=== PATIENT | female | born 1960 | race Caucasian/White ===

== ENCOUNTER 2016-12-05 13:04 | Inpatient (IN) ==
[2016-12-05] MEDS ORDERED: DEXTROSE 50% 25 GM/50 ML VIAL IV PRN (13:15)
--- NOTE | 2016-12-05 13:15 | Cardiothoracic History & Phys ---
History of Present Illness Chief complaint: Chest pain History of present illness: Ms. Joshi is a 56 year old female who is a patient of Dr. Messi De La Torre who is taking care of her for peripheral vascular disease. We will seen him in his office earlier this week she complained of chest pain and Dr. Lopez was suspicious of ischemic heart pain and referred her for cardiac evaluation. This consisted of cardiac catheterization demonstrating critical coronary artery disease and the patient has been referred for bypass surgery. Past medical history: Patient has a history of hypertension as well as diabetes mellitus hyperlipidemia and long-term tobacco use. Family history is positive for history of arrhythmias in the patient's mother. Patient surgical history includes amputation of 4 toes on the left foot. This was a result of diabetes and peripheral vascular disease. She has also had a previous section and cholecystectomy and right shoulder surgery. She has had median nerve decompression in the right wrist as well. Review of systems is noncontributory to the present illness social history shows that the patient is a cigarette smoker and has been for many years. She does not drink alcohol. Physical examination: Patient is a well-developed well-nourished white female in no acute distress. Examination of head eyes ears nose and throat show the pupils are equal react to light extraocular motions are intact and the oropharynx is benign. Examination of the neck shows no cysts or masses and there is no thyromegaly. Examination of the chest is clear to percussion and auscultation and examination the heart shows a regular sinus rhythm with no murmurs. Examination of the abdomen is soft and nontender and there is no tenderness and there is no organomegaly. Examination extremities shows no cyanosis or edema but there are absent pulses in both feet. Neurological examination is grossly within normal limits. Assessment: Coronary artery disease. Plan: Coronary bypass surgery Friday, December 09, 2016.
--- NOTE | 2016-12-05 17:02 | Hospitalist Consult Note ---
Assessment and Plan (1) CAD (coronary artery disease) Status: Acute Assessment and plan: cabg on Friday, ASA Current Visit: Yes (2) PAD (peripheral artery disease) Status: Acute Assessment and plan: fem pop bypass in near future Current Visit: Yes (3) Diabetes Status: Acute Assessment and plan: hgb A1c, Insulin sliding scale, januvia, hold metformin Current Visit: Yes (4) Rheumatoid arteritis Status: Acute Assessment and plan: complete C spine xray Current Visit: Yes (5) Fibromyalgia Status: Acute Assessment and plan: lyrica and cymbalta Current Visit: Yes History of Present Illness - Data of Consult Consult date: 12/05/16 Requesting Physician: Benja Us - Consult Narrative Reason for consult: management of uncontrolled diabetes History of present illness: Ms. Joshi is a 56 year old female who is a patient of Dr. Messi De La Torre who is taking care of her for peripheral vascular disease. She saw him in his office earlier this week she complained of chest pain and Dr. Davis was suspicious of ischemic heart pain and referred her for cardiac evaluation. This consisted of cardiac catheterization demonstrating critical coronary artery disease and the patient has been referred for bypass surgery. We were asked to manage her uncontrolled blood sugars. She also has RA and will a complete c spine to clear her for intubation. Surgery planned for Friday. CC: Benja Us MD - Home Medications and Allergies Home Medications: Home Medications Medication Instructions Recorded Confirmed Type Aspirin [Aspirin EC] 81 mg PO DAILY 12/05/16 12/05/16 History Cilostazol [Pletal] 50 mg PO BID 12/05/16 12/05/16 History DULoxetine [Cymbalta] 60 mg PO BID 12/05/16 12/05/16 History Hydrocodone/Acetaminophen 1 tablet PO QID PRN 12/05/16 12/05/16 History [Hydrocodon-Acetaminoph 7.5-325] Meclizine [Antivert] 25 mg PO TID PRN 12/05/16 12/05/16 History Metformin HCl [Metformin HCl] 500 mg PO BID 12/05/16 12/05/16 History Omeprazole [Omeprazole] 40 mg PO DAILY 12/05/16 12/05/16 History Pravastatin Sodium 40 mg PO DAILY 12/05/16 12/05/16 History Pregabalin [Lyrica] 100 mg PO BID 12/05/16 12/05/16 History Sitagliptin Phosphate [Januvia] 50 mg PO DAILY 12/05/16 12/05/16 History diazePAM [Diazepam] 10 mg PO BEDTIME PRN 12/05/16 12/05/16 History prednisoLONE AC 1% OPH SUSP [Pred 1 drop BOTH EYES QID 12/05/16 12/05/16 History Forte] Allergies/Adverse Reactions: Allergies Allergy/AdvReac Type Severity Reaction Status Date / Time No Known Allergies Allergy Verified 12/05/16 14:39 Medical,Surgical,& Family Hx - Medical History Cardio: History of: CAD, Hypertension, DE, PVD Psychological: History of: Depression Endocrine: History of: Diabetes Mellitus (IDDM) Respiratory: History of: Pneumonia (years ago) Gastrointestinal: History of: Ulcerative Colitis, GI Problems (IBS with D) - Surgical History Cardiac Surgeries: Sugical HX of: Cardiac Catheterization Abdominal Surgeries: Surgical HX of: Cholecystectomy, Colonoscopy, EGD Reproductive Surgeries: Surgical HX of;: Hysterectomy (partial " still has ovaries") - Family History Family History: Reports;: Family Cancer (mothers side), Family Diabetes (sister type 1), Family Heart Disease (mother), Family Hypertension (mother) - Social History Smoking Status: Current every day smoker Frequency of Alcohol Use: None Type of Drug Use: None Marital Status: Single Lives With:: Alone Functional capacity: independent ambulation - Constitutional Constitutional: Absent: fever(s), headache(s) - EENT Nose, mouth and throat: Absent: headache(s), sore throat - Cardiovascular Cardiovascular: Absent: chest pain at rest, dyspnea - Respiratory Respiratory: Absent: cough, dyspnea - Gastrointestinal Gastrointestinal: Absent: constipation, diarrhea, nausea, vomiting - Genitourinary Genitourinary: Absent: dysuria - Psychiatric Psychiatric: Present: anxiety, depression Exam - Constitutional Vitals: Period Temp Pulse Resp BP Sys/Villarreal Pulse Ox Last 24 Hr 98 F 72 18 121/67 97 General appearance: normal weight, no acute distress - Respiratory Respiratory exam: Present: clear to auscultation bilaterally. Absent: rhonchi, wheezes - Cardiovascular Cardiovascular exam: Present: regular rate and rhythm. Absent: systolic murmur - GI/Abdominal GI/Abdominal exam: Present: normal bowel sounds, soft. Absent: tenderness - Neurological Exam Neurological exam: Present: alert, oriented X3 - Psychiatric Psychiatric exam: Present: depressed, flat affect Quality Measures - VTE Contraindication to Pharmacological VTE Prophylaxis: High Risk of Bleeding
[2016-12-05] MEDS ORDERED: MECLIZINE 25 MG TABLET PO PRN (17:04)
--- NOTE | 2016-12-05 18:02 | XRay Report ---
History: Rheumatoid arthritis. Preop x-ray prior to intubation Date: 12/05/2016 Study: Cervical spine complete, 6 views Comparison exam: No previous There is no fracture, subluxation, or prevertebral soft tissue swelling. There is flowing anterior spondylosis from C2-C3 through C7-T1. The disc spaces are well-maintained. There is mild facet hypertrophy. There is some multilevel bony neural foraminal narrowing related to uncovertebral and facet hypertrophy at C2-C3 through C5-C6 bilaterally. Impression: Degenerative changes of the spine. No acute process PROCEDURE INTERPRETED AT [facility] DEPARTMENT OF RADIOLOGY Final Report Signed by: Dr. Krysta Mc
[2016-12-05] MEDS: ENOXAPARIN 60 MG/0.6 ML SYRINGE SUBCUT SCH (18:03)
[2016-12-05] MEDS: prednisoLONE ACETATE 1% OPH SUSP 5 ML BOTTLE BOTH EYES SCH (21:42)
[2016-12-05] MEDS: CILOSTAZOL 50 MG TABLET PO SCH (21:42)
--- NOTE | 2016-12-06 06:24 | Cardiothoracic Progress Note ---
Cardiothoracic Subjective Interval history: Patient had a comfortable night. Vital signs are stable and she is breathing comfortably. She is ready for surgery on Friday. I appreciate Dr. Santoyo's help in management. Exam (Progress Note) - Constitutional Vitals: Period Temp Pulse Resp BP Sys/Villarreal Pulse Ox Last 24 Hr 97.8 F-98.7 F 69-80 18-18 112-122/54-67 95-97 Result/EKG - Labs Labs: Laboratory Results - last 24 hr 12/05/16 17:18 Hemoglobin A1c 7.6 H Quality Measures - VTE Contraindication to Pharmacological VTE Prophylaxis: High Risk of Bleeding
--- NOTE | 2016-12-06 07:23 | XRay Report ---
Exam: Chest 2 views Date: December 06, 2016 at 6:42 AM Comparison: None Reason: CAD Findings: The cardiac silhouette is normal in size. No focal consolidation, pneumothorax or pleural effusion is identified. A calcified granuloma is noted at the right lung base. No acute osseous process is seen. There are surgical clips within the right upper abdomen, suggesting cholecystectomy. Impression: No acute cardiopulmonary process is identified. PROCEDURE INTERPRETED AT [facility] DEPARTMENT OF RADIOLOGY Final Report Signed by: Dr. Samina Caceres
--- NOTE | 2016-12-06 07:43 | EKG Report ---
Stationary ECG Study [facility] Test Date: 12/06/2016 7:42:53 AM Pat Name: KAREN CAPONE Department: Room: 273 Gender: F Landmen: JORJE : 1960 Requested by: Benja Lora Order Number: [id number] Reading MD: UGO DAILY Intervals [place] Rate: 69 P: 31 MD: 125 QRS: 13 QRSD: 94 T: -20 QT: 404 QTc: 422 Interpretive Statements SINUS RHYTHM INFERIOR MYOCARDIAL INFARCTION, OF INDETERMINATE AGE MODERATE T-WAVE ABNORMALITY, CONSIDER LATERAL ISCHEMIA Electronically Signed On 12-09-16 08:29:03 CDT by UGO DAILY [email or web address]
[2016-12-06] MEDS: CILOSTAZOL 50 MG TABLET PO SCH ×2 (08:34→21:18)
[2016-12-06] MEDS: PRAVASTATIN 40 MG TABLET PO SCH (08:34)
[2016-12-06] MEDS: sitaGLIPtin 25 MG TABLET PO SCH (08:35)
[2016-12-06] MEDS: prednisoLONE ACETATE 1% OPH SUSP 5 ML BOTTLE BOTH EYES SCH ×4 (08:35→21:18)
[2016-12-06] MEDS: PANTOPRAZOLE 40 MG TABLET PO SCH (08:35)
--- NOTE | 2016-12-06 10:52 | Hospitalist Progress Note ---
Assessment and Plan (1) CAD (coronary artery disease) Status: Acute Assessment and plan: Pt. awaiting CABG on Friday by Dr. Us. Current Visit: Yes (2) Diabetes Status: Acute Assessment and plan: A1c 7.5. Pt. given PO Januvia this am. May discontinue and initiate SSI for better control preoperatively. Accuchecks ordered. Current Visit: Yes (3) PAD (peripheral artery disease) Status: Acute Assessment and plan: Pt. awaiting fem op operation once cleared after CAB. Current Visit: Yes (4) Rheumatoid arteritis Status: Acute Current Visit: Yes Hospitalist: Subjective Interval history: Pt seen and examined. Resting comfortably with no distress noted. Denies any pain or shortness of breath. No complaints overnight. A1c was 7.5; vital signs were stable on review. Pt awaiting surgery on Friday. Exam - Constitutional Vitals: Period Temp Pulse Resp BP Sys/Villarreal Pulse Ox Last 24 Hr 97 F-98.7 F 69-80 18-20 112-136/54-67 95-99 General appearance: no acute distress - Head Head exam: Present: normal inspection, normocephalic - Eye Eye exam: Present: EOMI. Absent: scleral icterus Pupils: Present: JULY. Absent: fixed - ENT ENT exam: Present: normal exam - Neck Neck exam: Present: normal inspection - Respiratory Respiratory exam: Present: clear to auscultation bilaterally. Absent: wheezes - Cardiovascular Cardiovascular exam: Present: regular rate and rhythm - GI/Abdominal GI/Abdominal exam: Present: normal bowel sounds, soft. Absent: tenderness - Extremities Exam Extremities exam: Present: normal capillary refill, full ROM, other (pt has had an amputation to 4 digits on LLE). Absent: edema - Neurological Exam Neurological exam: Present: alert, oriented X3, normal gait - Psychiatric Psychiatric exam: Present: normal affect, normal mood - Skin Skin exam: Present: normal color, warm, dry Quality Measures - VTE Contraindication to Pharmacological VTE Prophylaxis: High Risk of Bleeding
[2016-12-06 11:31] LABS: Basophils % 0.1 % (0.0-0.8); Eosinophils # 0.2 10*3/uL (0.0-0.87); Eosinophils % 1.8 % (0.00-10.9); Hematocrit 36.8 VOL% (35.7-47.0); Hemoglobin 11.6 GM/DL (12.0-16.0); Immature Granulocytes % 0.9 %; Immature Granulocytes Absolute 0.08 #; Lymphocytes # 1.9 10*3/uL (1.4-4.0); Lymphocytes % 21.9 % (21.3-54.2); Mean Corpuscular HGB Conc 31.5 GM/DL (32-36); Mean Corpuscular Hemoglobin 27 PG (27-34); Mean Corpuscular Volume 85.2 FL (87-102); Mean Platelet Volume 8.6 FL (9.6-12.0); Monocytes # 0.3 10*3/uL (0.11-0.8); Monocytes % 3.2 % (1.7-12.7); Neutrophils # 6.3 10*3/uL (1.4-7.4); Neutrophils % 72.1 % (38.7-73.9); Platelet Count 436 T/CUMM (130-400); Red Blood Count 4.32 MC/CUMM (3.8-5.5); Red Cell Distribution Width 14.9 % (9.3-17.3); White Blood Count 8.7 T/CUMM (4-12)
[2016-12-06 11:46] LABS: Calcium 8.6 MG/DL (8.5-10.1); Osmolality,Calculated 286.8 MOS/KG (273-304); Potassium 4.4 MMOL/L (3.5-5.1)
[2016-12-06] MEDS ORDERED: CLORAZEPATE 3.75 MG TABLET PO PRN (14:17)
[2016-12-06] MEDS: ENOXAPARIN 60 MG/0.6 ML SYRINGE SUBCUT SCH (16:21)
[2016-12-06] MEDS: DIAZEPAM 5 MG TABLET PO PRN (21:18)
--- NOTE | 2016-12-07 08:44 | Cardiothoracic Progress Note ---
Cardiothoracic Subjective Interval history: Patient is pain-free and is ready for surgery on Friday. Exam (Progress Note) - Constitutional Vitals: Period Temp Pulse Resp BP Sys/Villarreal Pulse Ox Last 24 Hr 97.6 F-98.8 F 71-92 16-20 95-144/50-67 94-99 Result/EKG - Labs CBC & BMP: 12/06/16 11:03 12/06/16 11:03 Labs: Laboratory Results - last 24 hr 12/06/16 12/06/16 12/06/16 11:03 11:03 11:27 WBC 8.7 RBC 4.32 Hgb 11.6 L Hct 36.8 MCV 85.2 L MCH 27 MCHC 31.5 L RDW 14.9 Plt Count 436 H MPV 8.6 L Neut % (Auto) 72.1 Lymph % (Auto) 21.9 Miner % (Auto) 3.2 Eos % (Auto) 1.8 Baso % (Auto) 0.1 Neut # (Auto) 6.3 Lymph # (Auto) 1.9 Miner # (Auto) 0.3 Eos # (Auto) 0.2 Baso # (Auto) 0.0 Immature Gran % 0.9 Nucleated RBC % 0.0 Immature Gran # 0.08 Nucleated RBCs # 0.00 Sodium 144 Potassium 4.4 Chloride 108 H Carbon Dioxide 30 Anion Gap 10.4 BUN 7 Creatinine 0.60 GFR Calculation 100 BUN/Creatinine Ratio 11.00 Glucose 146 H POC Glucose 120 H Calculated Osmolality 286.8 Calcium 8.6 Quality Measures - VTE Contraindication to Pharmacological VTE Prophylaxis: High Risk of Bleeding
[2016-12-07] MEDS: PRAVASTATIN 40 MG TABLET PO SCH (09:00)
[2016-12-07] MEDS: prednisoLONE ACETATE 1% OPH SUSP 5 ML BOTTLE BOTH EYES SCH ×4 (09:00→21:07)
[2016-12-07] MEDS: CILOSTAZOL 50 MG TABLET PO SCH ×2 (09:00→21:06)
[2016-12-07] MEDS: PANTOPRAZOLE 40 MG TABLET PO SCH (09:00)
[2016-12-07] MEDS: sitaGLIPtin 25 MG TABLET PO SCH (09:00)
[2016-12-07 13:58] LABS: Basophils % 0.4 % (0.0-0.8); Eosinophils # 0.2 10*3/uL (0.0-0.87); Hematocrit 37.6 VOL% (35.7-47.0); Hemoglobin 11.7 GM/DL (12.0-16.0); Immature Granulocytes % 0.2 %; Immature Granulocytes Absolute 0.02 #; Lymphocytes # 2.2 10*3/uL (1.4-4.0); Lymphocytes % 26.6 % (21.3-54.2); Mean Corpuscular HGB Conc 31.1 GM/DL (32-36); Mean Corpuscular Hemoglobin 27 PG (27-34); Mean Corpuscular Volume 86.8 FL (87-102); Mean Platelet Volume 8.6 FL (9.6-12.0); Monocytes # 0.4 10*3/uL (0.11-0.8); Monocytes % 4.6 % (1.7-12.7); Neutrophils # 5.5 10*3/uL (1.4-7.4); Neutrophils % 66.2 % (38.7-73.9); Platelet Count 454 T/CUMM (130-400); Red Blood Count 4.33 MC/CUMM (3.8-5.5); Red Cell Distribution Width 14.9 % (9.3-17.3); White Blood Count 8.3 T/CUMM (4-12)
[2016-12-07 14:05] LABS: Alanine Aminotransferase 22 U/L (13-56); Albumin 2.9 G/DL (3.4-5.0); Alkaline Phosphatase 70 U/L (45-117); Aspartate Amino Transferase 26 U/L (0-37); Bilirubin,Total < 0.39 MG/DL (0.2-1.0); Blood Urea Nitrogen 7 MG/DL (7-18); Calcium 8.8 MG/DL (8.5-10.1); Glucose 178 MG/DL (74-106); Osmolality,Calculated 278.5 MOS/KG (273-304); Potassium 4.1 MMOL/L (3.5-5.1); Sodium 139 MMOL/L (136-145); Total Protein 6.3 G/DL (6.4-8.3)
[2016-12-07 14:10] LABS: ABG Base Excess 2.4 MMOL/L (-2.5-2.5); ABG Oxygen Saturation 93.6 % (95-100); ABG PCO2 36.6 MM HG (35-48); ABG PH 7.469 (7.35-7.45); ABG PO2 68.6 MM HG (80-95); ABG TCO2 27.1 MMOL/L (23-27)
--- NOTE | 2016-12-07 20:15 | Hospitalist Progress Note ---
Assessment and Plan (1) CAD (coronary artery disease) Status: Acute Assessment and plan: Patient scheduled for CABG on Friday morning with Dr. Us. She seems to be in good spirits and is pain-free. Current Visit: Yes (2) PAD (peripheral artery disease) Status: Acute Current Visit: Yes (3) Diabetes Status: Acute Assessment and plan: Accu-Cheks and sliding scale insulin ordered. Patient on Januvia at home for diabetes. Hemoglobin A1c 7.6. Current Visit: Yes Qualifiers: Diabetes mellitus type: type 2 Hospitalist: Subjective Interval history: Patient seen and examined. No acute events overnight. Case discussed with nursing staff. Labs reviewed. Exam - Constitutional Vitals: Period Temp Pulse Resp BP Sys/Villarreal Pulse Ox Last 24 Hr 97.0 F-98.8 F 71-106 16-20 97-144/50-79 94-99 Exam: Constitutional System: No distress. No tremulousness. Head: Normocephalic, atraumatic. Ears, Nose and Throat System: No pain or tenderness. No epistaxis or discharge Eyes System: Pupils equal, round, and reactive. Extraocular muscles intact. Neck: Supple, without adenopathy, No jugular venous distention. No thyromegaly, neck mass, or prior surgery apparent. Respiratory System: Chest clear to auscultation. Cardiovascular System: Heart with regular rate and rhythm. No murmur. GI System: Abdomen soft, nontender. Normo active bowel sounds present. Musculoskeletal System: limbs with no pedal edema. Full distal pulses. Neurological System: No discernable sensory deficit. No aphasia Psychiatric System: Conversation is rational Results - Labs CBC & BMP: 12/07/16 13:30 12/07/16 13:29 Lab Results: I have reviewed the past 24 hour labs Quality Measures - VTE Contraindication to Pharmacological VTE Prophylaxis: High Risk of Bleeding
[2016-12-07] MEDS: INSULIN LISPRO 100 UNIT/ML SUBCUT SCH (21:00)
[2016-12-07] MEDS: DIAZEPAM 5 MG TABLET PO PRN (21:06)
[2016-12-08] MEDS: INSULIN LISPRO 100 UNIT/ML SUBCUT SCH ×4 (07:14→21:00)
--- NOTE | 2016-12-08 08:05 | Cardiothoracic Progress Note ---
Cardiothoracic Subjective Interval history: Patient is ready for surgery in the morning. Exam (Progress Note) - Constitutional Vitals: Period Temp Pulse Resp BP Sys/Villarreal Pulse Ox Last 24 Hr 97.0 F-98 F 84-106 16-20 111-147/53-79 96-99 Result/EKG - Labs CBC & BMP: 12/07/16 13:30 12/07/16 13:29 Labs: Laboratory Results - last 24 hr 12/07/16 12/07/16 12/07/16 13:29 13:30 14:00 WBC 8.3 RBC 4.33 Hgb 11.7 L Hct 37.6 MCV 86.8 L MCH 27 MCHC 31.1 L RDW 14.9 Plt Count 454 H MPV 8.6 L Neut % (Auto) 66.2 Lymph % (Auto) 26.6 [place] % (Auto) 4.6 Eos % (Auto) 2.0 Baso % (Auto) 0.4 Neut # (Auto) 5.5 Lymph # (Auto) 2.2 [place] # (Auto) 0.4 Eos # (Auto) 0.2 Baso # (Auto) 0.0 Immature Gran % 0.2 Nucleated RBC % 0.0 Immature Gran # 0.02 Nucleated RBCs # 0.00 ABG pH 7.469 H ABG pCO2 36.6 ABG pO2 68.6 L ABG HCO3 26.0 ABG Total CO2 27.1 H ABG O2 Saturation 93.6 L ABG Base Excess 2.4 Sodium 139 Potassium 4.1 Chloride 106 Carbon Dioxide 27 Anion Gap 10.1 BUN 7 Creatinine 0.60 GFR Calculation 99 BUN/Creatinine Ratio 11.00 Glucose 178 H POC Glucose Calculated Osmolality 278.5 Calcium 8.8 Total Bilirubin < 0.39 AST 26 ALT 22 Alkaline Phosphatase 70 Total Protein 6.3 L Albumin 2.9 L Globulin 3.4 Albumin/Globulin Ratio 0.8 L 12/07/16 12/08/16 20:17 07:08 WBC RBC Hgb Hct MCV MCH MCHC RDW Plt Count MPV Neut % (Auto) Lymph % (Auto) [place] % (Auto) Eos % (Auto) Baso % (Auto) Neut # (Auto) Lymph # (Auto) [place] # (Auto) Eos # (Auto) Baso # (Auto) Immature Gran % Nucleated RBC % Immature Gran # Nucleated RBCs # ABG pH ABG pCO2 ABG pO2 ABG HCO3 ABG Total CO2 ABG O2 Saturation ABG Base Excess Sodium Potassium Chloride Carbon Dioxide Anion Gap BUN Creatinine GFR Calculation BUN/Creatinine Ratio Glucose POC Glucose 142 H 144 H Calculated Osmolality Calcium Total Bilirubin AST ALT Alkaline Phosphatase Total Protein Albumin Globulin Albumin/Globulin Ratio Quality Measures - VTE Contraindication to Pharmacological VTE Prophylaxis: High Risk of Bleeding
[2016-12-08] MEDS: CILOSTAZOL 50 MG TABLET PO SCH ×2 (10:53→21:07)
[2016-12-08] MEDS: PRAVASTATIN 40 MG TABLET PO SCH (10:53)
[2016-12-08] MEDS: sitaGLIPtin 25 MG TABLET PO SCH (10:54)
[2016-12-08] MEDS: CHLORHEXIDINE 0.12% ORAL RINSE 60 ML BOTTLE SWISH/SPIT SCH ×2 (10:54→21:07)
[2016-12-08] MEDS: CHLORHEXIDINE 4% SOLN 118 ML BOTTLE TOP SCH ×3 (10:55→21:08)
[2016-12-08] MEDS: prednisoLONE ACETATE 1% OPH SUSP 5 ML BOTTLE BOTH EYES SCH ×4 (10:55→21:07)
[2016-12-08] MEDS: DIAZEPAM 5 MG TABLET PO PRN (21:07)
[2016-12-09] MEDS ORDERED: PAPAVERINE 60 MG/2 ML VIAL ONE (04:41)
[2016-12-09] MEDS ORDERED: VANCOMYCIN 1,000 MG VIAL ONE (04:42)
[2016-12-09] MEDS ORDERED: TISSUE ADHESIVE 1 EACH APPLICATOR TOP ONE (04:42)
[2016-12-09] MEDS: CHLORHEXIDINE 4% SOLN 118 ML BOTTLE TOP SCH (05:05)
[2016-12-09] MEDS ORDERED: FAMOTIDINE 20 MG TABLET PO ONE (05:30)
[2016-12-09] MEDS ORDERED: LORazepam 1 MG TABLET PO ONE (05:30)
[2016-12-09] MEDS: PANTOPRAZOLE 40 MG TABLET PO SCH (05:46)
[2016-12-09] MEDS ORDERED: CEFUROXIME INJ 1,500 MG in SODIUM CHLORIDE 0.9% 100 ML IV ONE (06:00)
[2016-12-09] MEDS ORDERED: ETOMIDATE 20 MG/10 ML VIAL IV ONE ×2 (06:43→12:42)
[2016-12-09] MEDS ORDERED: HEPARIN 10,000 UNIT/10 ML VIAL ONE ×3 (06:43→12:41)
[2016-12-09] MEDS ORDERED: ESMOLOL 100 MG/10 ML VIAL IV ONE ×2 (06:43→12:42)
[2016-12-09] MEDS ORDERED: AMINOCAPROIC ACID 5,000 MG/20 ML VIAL IV ONE ×2 (06:43→12:42)
[2016-12-09] MEDS ORDERED: CALCIUM CHLORIDE 1,000 MG/10 ML SYRINGE IV ONE ×2 (06:43→12:41)
[2016-12-09] MEDS ORDERED: MINERAL OIL/PETROLATUM OPH OINT 3.5 GM TUBE ONE ×2 (06:43→12:42)
[2016-12-09] MEDS ORDERED: VECURONIUM 10 MG VIAL IV ONE ×2 (06:43→12:42)
[2016-12-09 07:38] LABS: ABG Base Excess 0.1 MMOL/L (-2.5-2.5); ABG HCO3 23.3 MMOL/L (20-26); ABG Oxygen Saturation 99.5 % (95-100); ABG PH 7.466 (7.35-7.45); ABG TCO2 24.3 MMOL/L (23-27); Glucose Heart Surgery 127 MG/DL (74-106); Hemoglobin Heart Surgery 11.7 G/DL (12.0-16.0); Ionized Calcium Arterial 1.12 MMOL/L (1.21-1.46); PH Patient Temp Arterial 7.466; Patient Temperature 37 CELCIUS; Potassium Heart/CVR 3.6 MMOL/L (3.5-5.1); Sodium Heart/CVR 138 MMOL/L (135-145)
[2016-12-09 07:52] LABS: Apearance,Urine Slightly Hazy (Clear); Bacteria,Urine Occasional /HPF (Few); Bilirubin,Urine Negative (Negative); Blood, Urine Negative (Negative); Glucose,Urine (UA) Negative (Negative); Ketones,Urine Negative (Negative); Mucus,Urine Moderate /LPF (Occasional); Nitrite,Urine Negative (Negative); Protein,Urine Negative; RBC,Urine <1 /HPF (0-4); Squamous Epithelial Cell,Urine Occasional /HPF (0-10); Urine Color Yellow (Yellow); Urine Specific Gravity 1.018 (1.001-1.035); Urine Urobilinogen < 2.0 EU/DL (0.2-1.0); WBC,Urine 1 /HPF (0-6)
[2016-12-09] MEDS ORDERED: ALBUTEROL 2.5 MG/3 ML NEB RESP TX ONE (08:30)
[2016-12-09] MEDS ORDERED: DEXTROSE 5% KCL 20 MEQ 20 MEQ/1,000 ML BAG IV ONE (08:36)
[2016-12-09] MEDS ORDERED: SODIUM BICARBONATE 50 MEQ/50 ML SYRINGE IV ONE (08:36)
[2016-12-09] MEDS ORDERED: ALBUMIN 25% 25 GM/100 ML VIAL IV ONE (08:36)
[2016-12-09] MEDS ORDERED: FUROSEMIDE 20 MG/2 ML VIAL ONE (08:36)
[2016-12-09] MEDS ORDERED: MANNITOL 12.5 GM/50 ML VIAL IV ONE (08:36)
[2016-12-09] MEDS ORDERED: PHENYLEPHRINE DRIP 20 MG/250 ML PREMIX IV ONE (08:36)
[2016-12-09] MEDS ORDERED: PROTAMINE SULFATE 250 MG/25 ML VIAL IV ONE (08:36)
[2016-12-09] MEDS ORDERED: methylPREDNISolone SOD SUC 1,000 MG/8 ML VIAL ONE (08:36)
[2016-12-09] MEDS ORDERED: MAGNESIUM SULFATE 1 GM/2 ML VIAL ONE (08:36)
[2016-12-09] MEDS ORDERED: CHLORHEXIDINE 0.12% ORAL RINSE 60 ML BOTTLE SWISH/SPIT SCH (09:00)
[2016-12-09] MEDS ORDERED: ASPIRIN EC 81 MG TABLET PO SCH (09:00)
[2016-12-09] MEDS ORDERED: PREGABALIN 100 MG CAPSULE PO SCH (09:00)
[2016-12-09] MEDS ORDERED: CHLORHEXIDINE 4% SOLN 118 ML BOTTLE TOP SCH (09:00)
[2016-12-09] MEDS ORDERED: sitaGLIPtin 25 MG TABLET PO SCH (09:00)
[2016-12-09] MEDS ORDERED: HEPARIN/NACL 0.9% 2 UNITS/ML 1,000 ML IV ONE (09:03)
[2016-12-09] MEDS ORDERED: PHENYLEPHRINE DRIP 40 MG/250 ML PREMIX IV ONE (09:11)
[2016-12-09] MEDS ORDERED: POTASSIUM CHLORIDE RIDER 100 ML IV ONE (09:11)
[2016-12-09 09:38] LABS: Hematocrit Heart Surgery 20.2 PERCENT (37-47); PCO2 Patient Temp Venous 37.9 MM HG; PH Patient Temp Venous 7.407; PO2 Patient Temp Venous 31.4 MM HG; Potassium Heart/CVR 4.5 MMOL/L (3.5-5.1); VBG Base Excess -0.4 MEQ/L (0-4); VBG HCO3 23.8 MEQ/L (24-28); VBG Oxygen Saturation 68.8 %; VBG PCO2 43.8 MMHG (41-51); VBG PH 7.364; VBG PO2 38.7 MMHG (17-40)
[2016-12-09 09:40] LABS: Hemoglobin Heart Surgery 6.4 G/DL (12.0-16.0)
[2016-12-09 10:05] LABS: Hematocrit Heart Surgery 22.3 PERCENT (37-47); Hemoglobin Heart Surgery 7.1 G/DL (12.0-16.0); PCO2 Patient Temp Venous 37.3 MM HG; PH Patient Temp Venous 7.433; PO2 Patient Temp Venous 34.1 MM HG; VBG HCO3 25.1 MEQ/L (24-28); VBG Oxygen Saturation 75.8 %; VBG PCO2 43.2 MMHG (41-51); VBG PH 7.389
[2016-12-09] MEDS ORDERED: NITROPRUSSIDE 50 MG/2 ML VIAL ONE (10:05)
[2016-12-09 10:48] LABS: ABG Base Excess -0.2 MMOL/L (-2.5-2.5); ABG HCO3 24.3 MMOL/L (20-26); ABG PCO2 36.6 MM HG (35-48); ABG PH 7.424 (7.35-7.45); ABG TCO2 22.4 MMOL/L (23-27); Glucose Heart Surgery 244 MG/DL (74-106); Hematocrit Heart Surgery 23.8 PERCENT (37-47); Hemoglobin Heart Surgery 7.6 G/DL (12.0-16.0); Ionized Calcium Arterial 1.24 MMOL/L (1.21-1.46); PCO2 Patient Temp Arterial 36.6 MMHG; PH Patient Temp Arterial 7.424; Patient Temperature 37 CELCIUS; Potassium Heart/CVR 4.2 MMOL/L (3.5-5.1); Sodium Heart/CVR 136 MMOL/L (135-145)
[2016-12-09] MEDS ORDERED: THROMBIN TOPICAL (RECOMBINANT) 5,000 UNIT VIAL TOP ONE (11:23)
[2016-12-09] MEDS ORDERED: CALCIUM CHLORIDE 1,000 MG/10 ML SYRINGE IV PRN (11:49)
[2016-12-09] MEDS ORDERED: MIDAZOLAM 2 MG/2 ML VIAL IV PRN (11:49)
[2016-12-09] MEDS ORDERED: MIDAZOLAM 10 MG/2 ML VIAL IV PRN (11:49)
[2016-12-09] MEDS ORDERED: INSULIN REGULAR 100 UNIT/ML IV ONE (11:49)
[2016-12-09] MEDS ORDERED: PHENYLEPHRINE DRIP 40 MG/250 ML PREMIX IV PRN (11:49)
[2016-12-09] MEDS ORDERED: ALBUMIN 5% 12.5 GM in PREMIX 1 EACH IV PRN (11:49)
[2016-12-09] MEDS ORDERED: ACETAMINOPHEN 650 MG SUPP RECTAL PRN (11:49)
[2016-12-09] MEDS ORDERED: NITROPRUSSIDE 100 MG in DEXTROSE 5% 250 ML IV PRN (11:49)
[2016-12-09] MEDS ORDERED: DEXTROSE 50% 25 GM/50 ML VIAL IV PRN ×3 (11:49→12:00)
[2016-12-09] MEDS ORDERED: MAGNESIUM SULF RIDER 2 GM in PREMIX 1 EACH IV PRN (11:49)
[2016-12-09] MEDS ORDERED: INSULIN REGULAR 100 UNIT/ML IV PRN (11:49)
[2016-12-09] MEDS ORDERED: MORPHINE 10 MG/1 ML VIAL IV PRN (11:49)
[2016-12-09] MEDS ORDERED: MAGNESIUM SULF RIDER 4 GM in PREMIX 1 EACH IV PRN (11:49)
[2016-12-09] MEDS ORDERED: VECURONIUM 10 MG VIAL IV PRN ×2 (11:49)
[2016-12-09] MEDS ORDERED: ONDANSETRON 4 MG/2 ML VIAL IV PRN (11:49)
[2016-12-09] MEDS: SODIUM CHLORIDE 0.45% 1,000 ML IV SCH ×2 (11:50)
--- NOTE | 2016-12-09 11:58 | Operative Note ---
Date of procedure: 12/09/16 Pre-op diagnosis: Coronary artery disease Post-op diagnosis: same Procedure: Procedure: Coronary bypass grafting 2 with a left internal mammary graft to the anterior descending coronary artery and a free right internal mammary graft to the right coronary artery. Findings: Patient is a 56-year-old lady who was found to have critical two- vessel coronary disease and was referred for bypass surgery. Sinus surgery left ventricular function was noted to be normal and a left internal mammary graft was grafted to the anterior descending coronary artery and a right internal mammary graft used as a free graft was grafted to the right coronary artery patient tolerated procedure well and was returned to recovery in satisfactory condition. Both distal vessels were large and free of disease at the site of anastomosis. Both internal mammary arteries were on the small side but seem to be suitable for grafting. Procedure: Patient brought to the operating room placed on the operating table in supine position. After satisfactory induction of general anesthesia the chest abdomen and legs were prepped and draped in sterile fashion. Sternotomy incision was made and carried down to the level of the sternum which was divided. Heart was suspended in a pericardial cradle. Both internal mammary arteries were dissected free from their position in the anterior chest wall and prepared as an arterial graft. Left internal mammary artery was used as an in situ graft and the right internal mammary artery as a free graft. Patient was prepared for cardiopulmonary bypass with systemic heparinization and cannulation of the ascending aorta and right atrium. Cardiopulmonary bypass was begun and the aorta was crossclamped and the heart arrested with cardioplegia solution injected into the aortic root. Heart was protected during the period of crossclamping with topical saline slush. Distal anastomoses were constructed as noted above using the right internal mammary artery as a free graft. The aorta was then unclamped reestablishing cardiac action and a proximal anastomosis was constructed between the inflow end of the right internal mammary artery and ascending aorta. Following the completion of all anastomoses the patient was weaned from cardiopulmonary bypass without difficulty and the heparin effect reversed with protamine. Decannulation was carried out with a defects in the ascending aorta and right atrium closed with 3 -0 Prolene. Operative area was inspected for hemostasis and this was considered adequate incision was closed with interrupted stainless steel wire and the sternum 0 Monocryl in the presternal fascia and 3-0 Monocryl in a subcuticular position. The chest tube was left in the anterior mediastinum and one in the right hemithorax and these were each brought out through separate stab incisions. Sterile dressings were applied and the patient returned recovery in satisfactory condition. Anesthesia: ELISEO Surgeon / Physician: Benja Us Estimated blood loss: other (Unable to determine because of cardiopulmonary bypass) Condition: stable Disposition: ICU Results - Labs CBC & BMP: 12/09/16 10:52 12/07/16 13:29 Discharge Plan - Discharge Medications No Action Hydrocodone/Acetaminophen [Hydrocodon-Acetaminoph 7.5-325] 1 tablet PO QID PRN PRN Reason: Pain prednisoLONE AC 1% OPH SUSP [Pred Forte] 1 drop BOTH EYES QID Omeprazole [Omeprazole] 40 mg PO DAILY Metformin HCl [Metformin HCl] 500 mg PO BID Pregabalin [Lyrica] 100 mg PO BID DULoxetine [Cymbalta] 60 mg PO BID Cilostazol [Pletal] 50 mg PO BID Aspirin [Aspirin EC] 81 mg PO DAILY diazePAM [Diazepam] 10 mg PO BEDTIME PRN PRN Reason: Sleep Meclizine [Antivert] 25 mg PO TID PRN PRN Reason: Dizziness Pravastatin Sodium 40 mg PO DAILY Sitagliptin Phosphate [Januvia] 50 mg PO DAILY - Follow Up or Referral - Forms/Instructions
[2016-12-09 12:22] LABS: ABG Base Excess -0.1 MMOL/L (-2.5-2.5); ABG HCO3 24.4 MMOL/L (20-26); ABG Oxygen Saturation 98.5 % (95-100); ABG PH 7.431 (7.35-7.45); Glucose Heart Surgery 172 MG/DL (74-106); Hematocrit Heart Surgery 28.1 PERCENT (37-47); Hemoglobin Heart Surgery 9.1 G/DL (12.0-16.0); Potassium Heart/CVR 3.6 MMOL/L (3.5-5.1)
[2016-12-09 12:24] LABS: Basophils % 0.2 % (0.0-0.8); Eosinophils # 0.1 10*3/uL (0.0-0.87); Eosinophils % 0.8 % (0.00-10.9); Hematocrit 28.5 VOL% (35.7-47.0); Hemoglobin 8.9 GM/DL (12.0-16.0); Immature Granulocytes % 0.9 %; Immature Granulocytes Absolute 0.12 #; Mean Corpuscular HGB Conc 31.2 GM/DL (32-36); Mean Corpuscular Hemoglobin 27 PG (27-34); Mean Corpuscular Volume 86.9 FL (87-102); Mean Platelet Volume 8.7 FL (9.6-12.0); Monocytes # 0.5 10*3/uL (0.11-0.8); Neutrophils # 11.2 10*3/uL (1.4-7.4); Neutrophils % 86.1 % (38.7-73.9); Platelet Count 350 T/CUMM (130-400); Red Blood Count 3.28 MC/CUMM (3.8-5.5); Red Cell Distribution Width 15.1 % (9.3-17.3); White Blood Count 13.1 T/CUMM (4-12)
[2016-12-09 12:33] LABS: INR 1.1; PT Patient Result 11.8 SECS; Partial Thromboplastin Time 27.7 SECS (0-40)
[2016-12-09] MEDS ORDERED: HEPARIN/NACL 0.9% 2 UNITS/ML 500 ML IV ONE (12:41)
[2016-12-09] MEDS ORDERED: MIDAZOLAM 10 MG/2 ML VIAL ONE ×2 (12:41)
[2016-12-09] MEDS ORDERED: SUFentanil 250 MCG/5 ML AMP ONE (12:41)
[2016-12-09] MEDS ORDERED: SEVOFLURANE 1 UNIT/15 MINUTE INH ONE (12:41)
[2016-12-09] MEDS ORDERED: SODIUM CHLORIDE 0.9% 1,000 ML IV ONE (12:42)
[2016-12-09] MEDS ORDERED: NITROGLYCERIN DRIP 50 MG/250 ML BOTTLE IV ONE (12:42)
[2016-12-09] MEDS ORDERED: SODIUM CHLORIDE 0.9% 100 ML IV ONE (12:42)
[2016-12-09] MEDS ORDERED: LACTATED RINGERS 1,000 ML IV ONE (12:42)
[2016-12-09] MEDS ORDERED: SODIUM CHLORIDE 0.9% 250 ML IV ONE (12:42)
[2016-12-09] MEDS ORDERED: ePHEDrine 50 MG/ML AMP ONE (12:42)
[2016-12-09] MEDS: KETOROLAC 30 MG/1 ML VIAL IV SCH ×2 (12:57→17:59)
[2016-12-09] MEDS: POTASSIUM CHLORIDE RIDER 20 MEQ in PREMIX 1 EACH IV PRN ×4 (12:57→20:48)
[2016-12-09] MEDS: LACTATED RINGERS 250 ML IV PRN ×7 (13:00→17:55)
[2016-12-09] MEDS ORDERED: SODIUM CHLORIDE 0.9% 1,000 ML IV SCH (13:00)
[2016-12-09 13:07] LABS: Albumin 2.7 G/DL (3.4-5.0); Bilirubin,Total 0.6 MG/DL (0.2-1.0); Calcium 8.4 MG/DL (8.5-10.1); Total Protein 5.1 G/DL (6.4-8.3)
[2016-12-09 13:08] LABS: Magnesium 2.2 MG/DL (1.8-2.4); Osmolality,Calculated 287.8 MOS/KG (273-304); Potassium 3.8 MMOL/L (3.5-5.1)
[2016-12-09] MEDS ORDERED: GLUCAGON 1 MG VIAL IM PRN (13:15)
--- NOTE | 2016-12-09 13:15 | XRay Report ---
Referring Physician: Benja Us Exam: XR chest 1V portable Date: December 09, 2016 at 12:49 PM Reason: Line placement Comparison: Chest 2 views December 06, 2016 Findings: An endotracheal tube is in place with its distal tip at the level of the aortic arch, approximately 3.5 cm above the tamie. A feeding tube is seen extending into the stomach with its distal tip within the right abdomen, likely at the gastric antrum/pylorus. A [place]-Kay catheter is also present with its distal tip in the region of the proximal descending right pulmonary artery. There is also a right IJ catheter. Its distal tip is partially obscured but is likely located at the SVC/right atrial junction. There is also a right chest tube with its distal tip at the right lung base, and mediastinal drain is suspected. The cardiac silhouette is upper normal in size, and the patient is status post sternotomy. There is minimal scattered atelectasis within both lower lung zones. No pneumothorax or significant pleural fluid is identified. The osseous structures appear stable. Impression: 1. Tubes and lines as above. 2. Interval sternotomy. 3. Minimal scattered atelectasis within both lower lung zones. PROCEDURE INTERPRETED AT [facility] DEPARTMENT OF RADIOLOGY Final Report Signed by: Dr. Samina Caceres
[2016-12-09 13:17] LABS: CKMB % 7.2 %
[2016-12-09 13:19] LABS: Troponin I Only 1.59 NG/ML (0.00-0.045)
[2016-12-09] MEDS: POTASSIUM CHLORIDE RIDER 10 MEQ in PREMIX 1 EACH IV PRN ×2 (13:34→17:06)
[2016-12-09] MEDS: INSULIN REGULAR DRIP 100 ML IV SCH (13:59)
[2016-12-09 16:12] LABS: ABG Base Excess 0.8 MMOL/L (-2.5-2.5); ABG HCO3 25.1 MMOL/L (20-26); ABG Oxygen Saturation 99.5 % (95-100); ABG PCO2 34.8 MM HG (35-48); ABG PH 7.454 (7.35-7.45); ABG TCO2 22.1 MMOL/L (23-27); Glucose Heart Surgery 130 MG/DL (74-106); Hematocrit Heart Surgery 31.1 PERCENT (37-47); Hemoglobin Heart Surgery 10.1 G/DL (12.0-16.0); Potassium Heart/CVR 3.5 MMOL/L (3.5-5.1)
--- NOTE | 2016-12-09 16:47 | Anesthesia Post-Op ---
Anesthesia Post OP - Post Ansesthetic Evaluation Patient seen in post op: Yes Resp: within normal limits (vent) CV: within normal limits Mental: within normal limits (awake) Temp: within normal limits Mywl-Fe-Rfjojrner: within normal limits Nausea and Vomiting: within normal limits Pain: within normal limits
[2016-12-09 17:06] LABS: ABG Base Excess 0.9 MMOL/L (-2.5-2.5); ABG HCO3 25.3 MMOL/L (20-26); ABG Oxygen Saturation 98.8 % (95-100); ABG PCO2 34.2 MM HG (35-48); ABG PH 7.461 (7.35-7.45); ABG TCO2 22.1 MMOL/L (23-27); Glucose Heart Surgery 98 MG/DL (74-106); Hematocrit Heart Surgery 30.8 PERCENT (37-47); Potassium Heart/CVR 4.4 MMOL/L (3.5-5.1)
[2016-12-09 18:21] LABS: ABG Base Excess 0.4 MMOL/L (-2.5-2.5); ABG HCO3 24.8 MMOL/L (20-26); ABG PCO2 37.1 MM HG (35-48); ABG PH 7.429 (7.35-7.45); ABG TCO2 22.3 MMOL/L (23-27); Glucose Heart Surgery 166 MG/DL (74-106); Hematocrit Heart Surgery 30.5 PERCENT (37-47); Hemoglobin Heart Surgery 9.9 G/DL (12.0-16.0); Potassium Heart/CVR 4.3 MMOL/L (3.5-5.1)
[2016-12-09] MEDS: MORPHINE 2 MG/1 ML SYRINGE IV PRN ×2 (19:32→22:21)
[2016-12-09] MEDS: CEFUROXIME INJ 1,500 MG in SODIUM CHLORIDE 0.9% 100 ML IV SCH (19:43)
[2016-12-09] MEDS ORDERED: FUROSEMIDE 40 MG/4 ML VIAL IV PRN (20:00)
[2016-12-09 20:44] LABS: ABG Base Excess -0.1 MMOL/L (-2.5-2.5); ABG HCO3 24.4 MMOL/L (20-26); ABG Oxygen Saturation 99.1 % (95-100); ABG PCO2 39.4 MM HG (35-48); ABG PH 7.403 (7.35-7.45); ABG TCO2 22.4 MMOL/L (23-27); Glucose Heart Surgery 122 MG/DL (74-106); Hematocrit Heart Surgery 30.5 PERCENT (37-47); Hemoglobin Heart Surgery 9.9 G/DL (12.0-16.0)
[2016-12-09] MEDS ORDERED: DULoxetine 30 MG CAPSULE PO SCH (21:00)
[2016-12-09 21:09] LABS: CKMB % 4.3 %
[2016-12-09 21:13] LABS: Troponin I Only 1.13 NG/ML (0.00-0.045)
[2016-12-09] MEDS: CHLORHEXIDINE 0.12% ORAL RINSE 60 ML BOTTLE SWISH/SPIT SCH (22:22)
[2016-12-10] MEDS: KETOROLAC 30 MG/1 ML VIAL IV SCH ×5 (00:01→21:21)
[2016-12-10 00:07] LABS: ABG Base Excess 0.2 MMOL/L (-2.5-2.5); ABG HCO3 23.8 MMOL/L (20-26); ABG Oxygen Saturation 97.5 % (95-100); ABG PCO2 34.9 MM HG (35-48); ABG PH 7.452 (7.35-7.45); ABG PO2 98.6 MM HG (80-95); ABG TCO2 24.9 MMOL/L (23-27); Glucose Heart Surgery 134 MG/DL (74-106); Hemoglobin Heart Surgery 11.1 G/DL (12.0-16.0); Potassium Heart/CVR 3.9 MMOL/L (3.5-5.1)
[2016-12-10] MEDS: POTASSIUM CHLORIDE RIDER 20 MEQ in PREMIX 1 EACH IV PRN ×2 (00:17→04:36)
[2016-12-10] MEDS: POTASSIUM CHLORIDE RIDER 10 MEQ in PREMIX 1 EACH IV PRN (00:52)
[2016-12-10 01:16] LABS: ABG Base Excess 0.2 MMOL/L (-2.5-2.5); ABG HCO3 24.6 MMOL/L (20-26); ABG Oxygen Saturation 97.2 % (95-100); ABG PCO2 41.3 MM HG (35-48); ABG PH 7.393 (7.35-7.45); ABG PO2 90.4 MM HG (80-95); ABG TCO2 22.8 MMOL/L (23-27); Glucose Heart Surgery 130 MG/DL (74-106); Hematocrit Heart Surgery 31.7 PERCENT (37-47); Hemoglobin Heart Surgery 10.3 G/DL (12.0-16.0); Potassium Heart/CVR 4.5 MMOL/L (3.5-5.1)
[2016-12-10] MEDS: MORPHINE 2 MG/1 ML SYRINGE IV PRN ×3 (03:03→10:34)
[2016-12-10 04:00] LABS: ABG Base Excess -1.2 MMOL/L (-2.5-2.5); ABG HCO3 23.4 MMOL/L (20-26); ABG Oxygen Saturation 97.2 % (95-100); ABG PCO2 41.3 MM HG (35-48); ABG PH 7.372 (7.35-7.45); ABG PO2 93.9 MM HG (80-95); ABG TCO2 21.7 MMOL/L (23-27); Glucose Heart Surgery 130 MG/DL (74-106); Hematocrit Heart Surgery 33.2 PERCENT (37-47); Hemoglobin Heart Surgery 10.8 G/DL (12.0-16.0); Potassium Heart/CVR 4.1 MMOL/L (3.5-5.1)
[2016-12-10 04:31] LABS: Basophils % 0.1 % (0.0-0.8); Hemoglobin 10.2 GM/DL (12.0-16.0); Immature Granulocytes % 0.8 %; Immature Granulocytes Absolute 0.19 #; Lymphocytes # 1.3 10*3/uL (1.4-4.0); Lymphocytes % 5.1 % (21.3-54.2); Mean Corpuscular HGB Conc 31.9 GM/DL (32-36); Mean Corpuscular Hemoglobin 28 PG (27-34); Mean Corpuscular Volume 87.7 FL (87-102); Mean Platelet Volume 9.1 FL (9.6-12.0); Monocytes # 1.1 10*3/uL (0.11-0.8); Monocytes % 4.5 % (1.7-12.7); Neutrophils # 22.3 10*3/uL (1.4-7.4); Neutrophils % 89.5 % (38.7-73.9); Platelet Count 351 T/CUMM (130-400); Red Blood Count 3.65 MC/CUMM (3.8-5.5); Red Cell Distribution Width 14.8 % (9.3-17.3); White Blood Count 24.9 T/CUMM (4-12)
[2016-12-10 04:39] LABS: Albumin 3.3 G/DL (3.4-5.0); Bilirubin,Direct 0.1 MG/DL (0.0-0.20); Bilirubin,Total 0.8 MG/DL (0.2-1.0); CKMB % 3.5 %; Calcium 9.1 MG/DL (8.5-10.1); Osmolality,Calculated 278.4 MOS/KG (273-304); Potassium 4.4 MMOL/L (3.5-5.1); Total Protein 5.9 G/DL (6.4-8.3)
[2016-12-10 04:40] LABS: Troponin I Only 0.882 NG/ML (0.00-0.045)
[2016-12-10 05:11] LABS: Lymphocytes 2 % (20-55); Platelet Estimate Normal; Segmented Neutrophils 97 % (50-85); Total Cells Counted 100
--- NOTE | 2016-12-10 07:10 | EKG Report ---
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
--- NOTE | 2016-12-10 07:40 | Cardiothoracic Progress Note ---
Cardiothoracic Subjective Interval history: Patient is awake alert and extubated. She had a comfortable night and was extubated about midnight. Blood gases are satisfactory postextubation. Vital signs have been stable with normal sinus rhythm. Troponins are not elevated. Urine output has been good and creatinine is within normal limits. Chest tube drainage is minimal and her chest tubes are removed and she is ready for transfer to telemetry. Exam (Progress Note) - Constitutional Vitals: Period Temp Pulse Resp BP Sys/[place] Pulse Ox Last 24 Hr 97.1 F-98.6 F 79-108 6-21 92-167/50-87 96-100 Result/EKG - Labs CBC & BMP: 12/10/16 04:00 12/10/16 04:00 Labs: Laboratory Results - last 24 hr 12/08/16 12/09/16 12/09/16 13:22 07:34 07:34 WBC RBC Hgb Hct MCV MCH MCHC RDW Plt Count 317 D MPV Neut % (Auto) Lymph % (Auto) [place] % (Auto) Eos % (Auto) Baso % (Auto) Neut # (Auto) Lymph # (Auto) [place] # (Auto) Eos # (Auto) Baso # (Auto) Total Counted Immature Gran % Nucleated RBC % Immature Gran # Segmented Neutrophils Lymphocytes Monocytes Nucleated RBCs # Platelet Estimate INR PT Patient/Control Mix Circ Anticoag PTT Patient Temperature 37 ABG pH 7.466 H ABG pH at Pt Temp 7.466 ABG pCO2 33.0 L ABG pCO2 at Pt Temp 33.0 ABG pO2 402.0 H ABG pO2 at Pt Temp 402.0 ABG HCO3 23.3 ABG Total CO2 24.3 ABG O2 Saturation 99.5 ABG Base Excess 0.1 ABG Sodium 138 VBG pH VBG pCO2 VBG pO2 VBG HCO3 VBG Total CO2 VBG O2 Saturation VBG Base Excess Hemoglobin 11.7 L Hematocrit 34.0 L Potassium 3.6 Glucose 127 H Ionized Calcium 1.12 L FiO2 Sodium Chloride Carbon Dioxide Anion Gap BUN Creatinine GFR Calculation BUN/Creatinine Ratio POC Glucose Calculated Osmolality Calcium Venous Ioniz Calcium Magnesium Total Bilirubin Direct Bilirubin AST ALT Alkaline Phosphatase Total Creatine Kinase CK-MB (CK-2) CK and CKMB Interp Troponin I Total Protein Albumin Globulin Albumin/Globulin Ratio Urine Color Urine Appearance Urine pH Ur Specific [place] Urine Protein Urine Glucose (UA) Urine Ketones Urine Blood Urine Nitrate Urine Bilirubin Urine Urobilinogen Urine Leukocytes Urine RBC Urine WBC Ur Squamous Epith Cells Urine Bacteria Urine Mucus Ur Culture Indicated? Blood Type A POSITIVE Antibody Screen Negative Crossmatch See Detail 12/09/16 12/09/16 12/09/16 07:41 09:35 10:04 WBC RBC Hgb Hct MCV MCH MCHC RDW Plt Count MPV Neut % (Auto) Lymph % (Auto) [place] % (Auto) Eos % (Auto) Baso % (Auto) Neut # (Auto) Lymph # (Auto) [place] # (Auto) Eos # (Auto) Baso # (Auto) Total Counted Immature Gran % Nucleated RBC % Immature Gran # Segmented Neutrophils Lymphocytes Monocytes Nucleated RBCs # Platelet Estimate INR PT Patient/Control Mix Circ Anticoag PTT Patient Temperature 34 34 ABG pH ABG pH at Pt Temp 7.407 7.433 ABG pCO2 ABG pCO2 at Pt Temp 37.9 37.3 ABG pO2 ABG pO2 at Pt Temp 31.4 34.1 ABG HCO3 ABG Total CO2 ABG O2 Saturation ABG Base Excess ABG Sodium 133 L 133 L VBG pH 7.364 7.389 VBG pCO2 43.8 43.2 VBG pO2 38.7 42.0 H VBG HCO3 23.8 L 25.1 VBG Total CO2 23.9 24.7 VBG O2 Saturation 68.8 75.8 VBG Base Excess -0.4 L 1.0 Hemoglobin 6.4 L* 7.1 L Hematocrit 20.2 L 22.3 L Potassium 4.5 4.0 Glucose 372 H 335 H Ionized Calcium FiO2 80.00 80.00 Sodium Chloride Carbon Dioxide Anion Gap BUN Creatinine GFR Calculation BUN/Creatinine Ratio POC Glucose Calculated Osmolality Calcium Venous Ioniz Calcium 0.89 L 0.99 L Magnesium Total Bilirubin Direct Bilirubin AST ALT Alkaline Phosphatase Total Creatine Kinase CK-MB (CK-2) CK and CKMB Interp Troponin I Total Protein Albumin Globulin Albumin/Globulin Ratio Urine Color Yellow Urine Appearance Slightly hazy Urine pH 5.0 Ur Specific [place] 1.018 Urine Protein Negative Urine Glucose (UA) Negative Urine Ketones Negative Urine Blood Negative Urine Nitrate Negative Urine Bilirubin Negative Urine Urobilinogen < 2.0 H Urine Leukocytes Negative Urine RBC <1 Urine WBC 1 Ur Squamous Epith Cells Occasional Urine Bacteria Occasional Urine Mucus Moderate Ur Culture Indicated? Not indicated Blood Type Antibody Screen Crossmatch 12/09/16 12/09/16 12/09/16 10:50 10:52 12:18 WBC 13.1 H D RBC 3.28 L D Hgb 8.9 L D Hct 28.5 L MCV 86.9 L MCH 27 MCHC 31.2 L RDW 15.1 Plt Count 278 350 D MPV 8.7 L Neut % (Auto) 86.1 H Lymph % (Auto) 8.0 L [place] % (Auto) 4.0 Eos % (Auto) 0.8 Baso % (Auto) 0.2 Neut # (Auto) 11.2 H Lymph # (Auto) 1.0 L [place] # (Auto) 0.5 Eos # (Auto) 0.1 Baso # (Auto) 0.0 Total Counted Immature Gran % 0.9 Nucleated RBC % 0.0 Immature Gran # 0.12 Segmented Neutrophils Lymphocytes Monocytes Nucleated RBCs # 0.00 Platelet Estimate INR PT Patient/Control Mix Circ Anticoag PTT Patient Temperature 37 ABG pH 7.424 ABG pH at Pt Temp 7.424 ABG pCO2 36.6 ABG pCO2 at Pt Temp 36.6 ABG pO2 405.0 H ABG pO2 at Pt Temp 405.0 ABG HCO3 24.3 ABG Total CO2 22.4 L ABG O2 Saturation 100.0 ABG Base Excess -0.2 ABG Sodium 136 VBG pH VBG pCO2 VBG pO2 VBG HCO3 VBG Total CO2 VBG O2 Saturation VBG Base Excess Hemoglobin 7.6 L Hematocrit 23.8 L Potassium 4.2 Glucose 244 H Ionized Calcium 1.24 FiO2 Sodium Chloride Carbon Dioxide Anion Gap BUN Creatinine GFR Calculation BUN/Creatinine Ratio POC Glucose Calculated Osmolality Calcium Venous Ioniz Calcium Magnesium Total Bilirubin Direct Bilirubin AST ALT Alkaline Phosphatase Total Creatine Kinase CK-MB (CK-2) CK and CKMB Interp Troponin I Total Protein Albumin Globulin Albumin/Globulin Ratio Urine Color Urine Appearance Urine pH Ur Specific [place] Urine Protein Urine Glucose (UA) Urine Ketones Urine Blood Urine Nitrate Urine Bilirubin Urine Urobilinogen Urine Leukocytes Urine RBC Urine WBC Ur Squamous Epith Cells Urine Bacteria Urine Mucus Ur Culture Indicated? Blood Type Antibody Screen Crossmatch 12/09/16 12/09/16 12/09/16 12:18 12:25 12:25 WBC RBC Hgb Hct MCV MCH MCHC RDW Plt Count MPV Neut % (Auto) Lymph % (Auto) [place] % (Auto) Eos % (Auto) Baso % (Auto) Neut # (Auto) Lymph # (Auto) [place] # (Auto) Eos # (Auto) Baso # (Auto) Total Counted Immature Gran % Nucleated RBC % Immature Gran # Segmented Neutrophils Lymphocytes Monocytes Nucleated RBCs # Platelet Estimate INR 1.1 PT Patient/Control Mix 11.8 Circ Anticoag PTT 27.7 Patient Temperature ABG pH 7.431 ABG pH at Pt Temp ABG pCO2 36.0 ABG pCO2 at Pt Temp ABG pO2 114.0 H ABG pO2 at Pt Temp ABG HCO3 24.4 ABG Total CO2 22.0 L ABG O2 Saturation 98.5 ABG Base Excess -0.1 ABG Sodium VBG pH VBG pCO2 VBG pO2 VBG HCO3 VBG Total CO2 VBG O2 Saturation VBG Base Excess Hemoglobin 9.1 L Hematocrit 28.1 L Potassium 3.8 3.6 Glucose 173 H 172 H Ionized Calcium FiO2 Sodium 144 Chloride 110 H Carbon Dioxide 25 Anion Gap 12.8 BUN 7 Creatinine 0.70 GFR Calculation 94 BUN/Creatinine Ratio 10.00 POC Glucose Calculated Osmolality 287.8 Calcium 8.4 L Venous Ioniz Calcium Magnesium 2.2 Total Bilirubin 0.60 Direct Bilirubin AST 35 ALT 24 Alkaline Phosphatase 53 Total Creatine Kinase CK-MB (CK-2) CK and CKMB Interp Troponin I Total Protein 5.1 L Albumin 2.7 L Globulin 2.4 Albumin/Globulin Ratio 1.1 Urine Color Urine Appearance Urine pH Ur Specific [place] Urine Protein Urine Glucose (UA) Urine Ketones Urine Blood Urine Nitrate Urine Bilirubin Urine Urobilinogen Urine Leukocytes Urine RBC Urine WBC Ur Squamous Epith Cells Urine Bacteria Urine Mucus Ur Culture Indicated? Blood Type Antibody Screen Crossmatch 12/09/16 12/09/16 12/09/16 12:25 15:06 16:04 WBC RBC Hgb Hct MCV MCH MCHC RDW Plt Count MPV Neut % (Auto) Lymph % (Auto) [place] % (Auto) Eos % (Auto) Baso % (Auto) Neut # (Auto) Lymph # (Auto) [place] # (Auto) Eos # (Auto) Baso # (Auto) Total Counted Immature Gran % Nucleated RBC % Immature Gran # Segmented Neutrophils Lymphocytes Monocytes Nucleated RBCs # Platelet Estimate INR PT Patient/Control Mix Circ Anticoag PTT Patient Temperature ABG pH ABG pH at Pt Temp ABG pCO2 ABG pCO2 at Pt Temp ABG pO2 ABG pO2 at Pt Temp ABG HCO3 ABG Total CO2 ABG O2 Saturation ABG Base Excess ABG Sodium VBG pH VBG pCO2 VBG pO2 VBG HCO3 VBG Total CO2 VBG O2 Saturation VBG Base Excess Hemoglobin Hematocrit Potassium Glucose Ionized Calcium FiO2 Sodium Chloride Carbon Dioxide Anion Gap BUN Creatinine GFR Calculation BUN/Creatinine Ratio POC Glucose 181 H 119 H Calculated Osmolality Calcium Venous Ioniz Calcium Magnesium Total Bilirubin Direct Bilirubin AST ALT Alkaline Phosphatase Total Creatine Kinase 141 CK-MB (CK-2) 10.1 H CK and CKMB Interp 7.2 Troponin I 1.590 H Total Protein Albumin Globulin Albumin/Globulin Ratio Urine Color Urine Appearance Urine pH Ur Specific [place] Urine Protein Urine Glucose (UA) Urine Ketones Urine Blood Urine Nitrate Urine Bilirubin Urine Urobilinogen Urine Leukocytes Urine RBC Urine WBC Ur Squamous Epith Cells Urine Bacteria Urine Mucus Ur Culture Indicated? Blood Type Antibody Screen Crossmatch 12/09/16 12/09/16 12/09/16 16:07 17:00 17:01 WBC RBC Hgb Hct MCV MCH MCHC RDW Plt Count MPV Neut % (Auto) Lymph % (Auto) [place] % (Auto) Eos % (Auto) Baso % (Auto) Neut # (Auto) Lymph # (Auto) [place] # (Auto) Eos # (Auto) Baso # (Auto) Total Counted Immature Gran % Nucleated RBC % Immature Gran # Segmented Neutrophils Lymphocytes Monocytes Nucleated RBCs # Platelet Estimate INR PT Patient/Control Mix Circ Anticoag PTT Patient Temperature ABG pH 7.454 H 7.461 H ABG pH at Pt Temp ABG pCO2 34.8 L 34.2 L ABG pCO2 at Pt Temp ABG pO2 189.0 H 116.0 H ABG pO2 at Pt Temp ABG HCO3 25.1 25.3 ABG Total CO2 22.1 L 22.1 L ABG O2 Saturation 99.5 98.8 ABG Base Excess 0.8 0.9 ABG Sodium VBG pH VBG pCO2 VBG pO2 VBG HCO3 VBG Total CO2 VBG O2 Saturation VBG Base Excess Hemoglobin 10.1 L 10.0 L Hematocrit 31.1 L 30.8 L Potassium 3.5 4.4 Glucose 130 H 98 Ionized Calcium FiO2 Sodium Chloride Carbon Dioxide Anion Gap BUN Creatinine GFR Calculation BUN/Creatinine Ratio POC Glucose 92 Calculated Osmolality Calcium Venous Ioniz Calcium Magnesium Total Bilirubin Direct Bilirubin AST ALT Alkaline Phosphatase Total Creatine Kinase CK-MB (CK-2) CK and CKMB Interp Troponin I Total Protein Albumin Globulin Albumin/Globulin Ratio Urine Color Urine Appearance Urine pH Ur Specific [place] Urine Protein Urine Glucose (UA) Urine Ketones Urine Blood Urine Nitrate Urine Bilirubin Urine Urobilinogen Urine Leukocytes Urine RBC Urine WBC Ur Squamous Epith Cells Urine Bacteria Urine Mucus Ur Culture Indicated? Blood Type Antibody Screen Crossmatch 12/09/16 12/09/16 12/09/16 18:13 18:18 19:03 WBC RBC Hgb Hct MCV MCH MCHC RDW Plt Count MPV Neut % (Auto) Lymph % (Auto) [place] % (Auto) Eos % (Auto) Baso % (Auto) Neut # (Auto) Lymph # (Auto) [place] # (Auto) Eos # (Auto) Baso # (Auto) Total Counted Immature Gran % Nucleated RBC % Immature Gran # Segmented Neutrophils Lymphocytes Monocytes Nucleated RBCs # Platelet Estimate INR PT Patient/Control Mix Circ Anticoag PTT Patient Temperature ABG pH 7.429 ABG pH at Pt Temp ABG pCO2 37.1 ABG pCO2 at Pt Temp ABG pO2 127.0 H ABG pO2 at Pt Temp ABG HCO3 24.8 ABG Total CO2 22.3 L ABG O2 Saturation 99.0 ABG Base Excess 0.4 ABG Sodium VBG pH VBG pCO2 VBG pO2 VBG HCO3 VBG Total CO2 VBG O2 Saturation VBG Base Excess Hemoglobin 9.9 L Hematocrit 30.5 L Potassium 4.3 Glucose 166 H Ionized Calcium FiO2 Sodium Chloride Carbon Dioxide Anion Gap BUN Creatinine GFR Calculation BUN/Creatinine Ratio POC Glucose 155 H 139 H Calculated Osmolality Calcium Venous Ioniz Calcium Magnesium Total Bilirubin Direct Bilirubin AST ALT Alkaline Phosphatase Total Creatine Kinase CK-MB (CK-2) CK and CKMB Interp Troponin I Total Protein Albumin Globulin Albumin/Globulin Ratio Urine Color Urine Appearance Urine pH Ur Specific [place] Urine Protein Urine Glucose (UA) Urine Ketones Urine Blood Urine Nitrate Urine Bilirubin Urine Urobilinogen Urine Leukocytes Urine RBC Urine WBC Ur Squamous Epith Cells Urine Bacteria Urine Mucus Ur Culture Indicated? Blood Type Antibody Screen Crossmatch 12/09/16 12/09/16 12/09/16 20:05 20:35 20:35 WBC RBC Hgb Hct MCV MCH MCHC RDW Plt Count MPV Neut % (Auto) Lymph % (Auto) [place] % (Auto) Eos % (Auto) Baso % (Auto) Neut # (Auto) Lymph # (Auto) [place] # (Auto) Eos # (Auto) Baso # (Auto) Total Counted Immature Gran % Nucleated RBC % Immature Gran # Segmented Neutrophils Lymphocytes Monocytes Nucleated RBCs # Platelet Estimate INR PT Patient/Control Mix Circ Anticoag PTT Patient Temperature ABG pH 7.403 ABG pH at Pt Temp ABG pCO2 39.4 ABG pCO2 at Pt Temp ABG pO2 131.0 H ABG pO2 at Pt Temp ABG HCO3 24.4 ABG Total CO2 22.4 L ABG O2 Saturation 99.1 ABG Base Excess -0.1 ABG Sodium VBG pH VBG pCO2 VBG pO2 VBG HCO3 VBG Total CO2 VBG O2 Saturation VBG Base Excess Hemoglobin 9.9 L Hematocrit 30.5 L Potassium 4.0 Glucose 122 H Ionized Calcium FiO2 Sodium Chloride Carbon Dioxide Anion Gap BUN Creatinine GFR Calculation BUN/Creatinine Ratio POC Glucose 122 H Calculated Osmolality Calcium Venous Ioniz Calcium Magnesium Total Bilirubin Direct Bilirubin AST ALT Alkaline Phosphatase Total Creatine Kinase 183 D CK-MB (CK-2) 7.8 H CK and CKMB Interp 4.3 Troponin I 1.130 H D Total Protein Albumin Globulin Albumin/Globulin Ratio Urine Color Urine Appearance Urine pH Ur Specific [place] Urine Protein Urine Glucose (UA) Urine Ketones Urine Blood Urine Nitrate Urine Bilirubin Urine Urobilinogen Urine Leukocytes Urine RBC Urine WBC Ur Squamous Epith Cells Urine Bacteria Urine Mucus Ur Culture Indicated? Blood Type Antibody Screen Crossmatch 12/09/16 12/09/16 12/09/16 21:04 22:08 23:04 WBC RBC Hgb Hct MCV MCH MCHC RDW Plt Count MPV Neut % (Auto) Lymph % (Auto) [place] % (Auto) Eos % (Auto) Baso % (Auto) Neut # (Auto) Lymph # (Auto) [place] # (Auto) Eos # (Auto) Baso # (Auto) Total Counted Immature Gran % Nucleated RBC % Immature Gran # Segmented Neutrophils Lymphocytes Monocytes Nucleated RBCs # Platelet Estimate INR PT Patient/Control Mix Circ Anticoag PTT Patient Temperature ABG pH ABG pH at Pt Temp ABG pCO2 ABG pCO2 at Pt Temp ABG pO2 ABG pO2 at Pt Temp ABG HCO3 ABG Total CO2 ABG O2 Saturation ABG Base Excess ABG Sodium VBG pH VBG pCO2 VBG pO2 VBG HCO3 VBG Total CO2 VBG O2 Saturation VBG Base Excess Hemoglobin Hematocrit Potassium Glucose Ionized Calcium FiO2 Sodium Chloride Carbon Dioxide Anion Gap BUN Creatinine GFR Calculation BUN/Creatinine Ratio POC Glucose 112 H 95 147 H Calculated Osmolality Calcium Venous Ioniz Calcium Magnesium Total Bilirubin Direct Bilirubin AST ALT Alkaline Phosphatase Total Creatine Kinase CK-MB (CK-2) CK and CKMB Interp Troponin I Total Protein Albumin Globulin Albumin/Globulin Ratio Urine Color Urine Appearance Urine pH Ur Specific [place] Urine Protein Urine Glucose (UA) Urine Ketones Urine Blood Urine Nitrate Urine Bilirubin Urine Urobilinogen Urine Leukocytes Urine RBC Urine WBC Ur Squamous Epith Cells Urine Bacteria Urine Mucus Ur Culture Indicated? Blood Type Antibody Screen Crossmatch 12/10/16 12/10/16 12/10/16 00:00 01:01 01:10 WBC RBC Hgb Hct MCV MCH MCHC RDW Plt Count MPV Neut % (Auto) Lymph % (Auto) [place] % (Auto) Eos % (Auto) Baso % (Auto) Neut # (Auto) Lymph # (Auto) [place] # (Auto) Eos # (Auto) Baso # (Auto) Total Counted Immature Gran % Nucleated RBC % Immature Gran # Segmented Neutrophils Lymphocytes Monocytes Nucleated RBCs # Platelet Estimate INR PT Patient/Control Mix Circ Anticoag PTT Patient Temperature ABG pH 7.452 H 7.393 ABG pH at Pt Temp ABG pCO2 34.9 L 41.3 ABG pCO2 at Pt Temp ABG pO2 98.6 H 90.4 ABG pO2 at Pt Temp ABG HCO3 23.8 24.6 ABG Total CO2 24.9 22.8 L ABG O2 Saturation 97.5 97.2 ABG Base Excess 0.2 0.2 ABG Sodium VBG pH VBG pCO2 VBG pO2 VBG HCO3 VBG Total CO2 VBG O2 Saturation VBG Base Excess Hemoglobin 11.1 L 10.3 L Hematocrit 33.0 L 31.7 L Potassium 3.9 4.5 Glucose 134 H 130 H Ionized Calcium FiO2 Sodium Chloride Carbon Dioxide Anion Gap BUN Creatinine GFR Calculation BUN/Creatinine Ratio POC Glucose 137 H Calculated Osmolality Calcium Venous Ioniz Calcium Magnesium Total Bilirubin Direct Bilirubin AST ALT Alkaline Phosphatase Total Creatine Kinase CK-MB (CK-2) CK and CKMB Interp Troponin I Total Protein Albumin Globulin Albumin/Globulin Ratio Urine Color Urine Appearance Urine pH Ur Specific [place] Urine Protein Urine Glucose (UA) Urine Ketones Urine Blood Urine Nitrate Urine Bilirubin Urine Urobilinogen Urine Leukocytes Urine RBC Urine WBC Ur Squamous Epith Cells Urine Bacteria Urine Mucus Ur Culture Indicated? Blood Type Antibody Screen Crossmatch 12/10/16 12/10/16 12/10/16 02:03 03:04 03:47 WBC RBC Hgb Hct MCV MCH MCHC RDW Plt Count MPV Neut % (Auto) Lymph % (Auto) [place] % (Auto) Eos % (Auto) Baso % (Auto) Neut # (Auto) Lymph # (Auto) [place] # (Auto) Eos # (Auto) Baso # (Auto) Total Counted Immature Gran % Nucleated RBC % Immature Gran # Segmented Neutrophils Lymphocytes Monocytes Nucleated RBCs # Platelet Estimate INR PT Patient/Control Mix Circ Anticoag PTT Patient Temperature ABG pH 7.372 ABG pH at Pt Temp ABG pCO2 41.3 ABG pCO2 at Pt Temp ABG pO2 93.9 ABG pO2 at Pt Temp ABG HCO3 23.4 ABG Total CO2 21.7 L ABG O2 Saturation 97.2 ABG Base Excess -1.2 ABG Sodium VBG pH VBG pCO2 VBG pO2 VBG HCO3 VBG Total CO2 VBG O2 Saturation VBG Base Excess Hemoglobin 10.8 L Hematocrit 33.2 L Potassium 4.1 Glucose 130 H Ionized Calcium FiO2 Sodium Chloride Carbon Dioxide Anion Gap BUN Creatinine GFR Calculation BUN/Creatinine Ratio POC Glucose 119 H 128 H Calculated Osmolality Calcium Venous Ioniz Calcium Magnesium Total Bilirubin Direct Bilirubin AST ALT Alkaline Phosphatase Total Creatine Kinase CK-MB (CK-2) CK and CKMB Interp Troponin I Total Protein Albumin Globulin Albumin/Globulin Ratio Urine Color Urine Appearance Urine pH Ur Specific [place] Urine Protein Urine Glucose (UA) Urine Ketones Urine Blood Urine Nitrate Urine Bilirubin Urine Urobilinogen Urine Leukocytes Urine RBC Urine WBC Ur Squamous Epith Cells Urine Bacteria Urine Mucus Ur Culture Indicated? Blood Type Antibody Screen Crossmatch 12/10/16 12/10/16 12/10/16 04:00 04:00 05:01 WBC 24.9 H D RBC 3.65 L Hgb 10.2 L Hct 32.0 L MCV 87.7 MCH 28 MCHC 31.9 L RDW 14.8 Plt Count 351 MPV 9.1 L Neut % (Auto) 89.5 H Lymph % (Auto) 5.1 L [place] % (Auto) 4.5 Eos % (Auto) 0.0 Baso % (Auto) 0.1 Neut # (Auto) 22.3 H Lymph # (Auto) 1.3 L [place] # (Auto) 1.1 H Eos # (Auto) 0.0 Baso # (Auto) 0.0 Total Counted 100 Immature Gran % 0.8 Nucleated RBC % 0.0 Immature Gran # 0.19 Segmented Neutrophils 97 H Lymphocytes 2 L Monocytes 1 L Nucleated RBCs # 0.00 Platelet Estimate Normal INR PT Patient/Control Mix Circ Anticoag PTT Patient Temperature ABG pH ABG pH at Pt Temp ABG pCO2 ABG pCO2 at Pt Temp ABG pO2 ABG pO2 at Pt Temp ABG HCO3 ABG Total CO2 ABG O2 Saturation ABG Base Excess ABG Sodium VBG pH VBG pCO2 VBG pO2 VBG HCO3 VBG Total CO2 VBG O2 Saturation VBG Base Excess Hemoglobin Hematocrit Potassium 4.4 Glucose 120 H Ionized Calcium FiO2 Sodium 140 Chloride 108 H Carbon Dioxide 24 Anion Gap 12.4 BUN 11 Creatinine 0.60 GFR Calculation 98 BUN/Creatinine Ratio 18.00 POC Glucose 116 H Calculated Osmolality 278.4 Calcium 9.1 Venous Ioniz Calcium Magnesium 2.0 Total Bilirubin 0.80 Direct Bilirubin 0.10 AST 32 ALT 27 Alkaline Phosphatase 56 Total Creatine Kinase 212 H CK-MB (CK-2) 7.4 H CK and CKMB Interp 3.5 Troponin I 0.882 H D Total Protein 5.9 L Albumin 3.3 L Globulin 2.6 Albumin/Globulin Ratio 1.2 Urine Color Urine Appearance Urine pH Ur Specific [place] Urine Protein Urine Glucose (UA) Urine Ketones Urine Blood Urine Nitrate Urine Bilirubin Urine Urobilinogen Urine Leukocytes Urine RBC Urine WBC Ur Squamous Epith Cells Urine Bacteria Urine Mucus Ur Culture Indicated? Blood Type Antibody Screen Crossmatch 12/10/16 06:11 WBC RBC Hgb Hct MCV MCH MCHC RDW Plt Count MPV Neut % (Auto) Lymph % (Auto) [place] % (Auto) Eos % (Auto) Baso % (Auto) Neut # (Auto) Lymph # (Auto) [place] # (Auto) Eos # (Auto) Baso # (Auto) Total Counted Immature Gran % Nucleated RBC % Immature Gran # Segmented Neutrophils Lymphocytes Monocytes Nucleated RBCs # Platelet Estimate INR PT Patient/Control Mix Circ Anticoag PTT Patient Temperature ABG pH ABG pH at Pt Temp ABG pCO2 ABG pCO2 at Pt Temp ABG pO2 ABG pO2 at Pt Temp ABG HCO3 ABG Total CO2 ABG O2 Saturation ABG Base Excess ABG Sodium VBG pH VBG pCO2 VBG pO2 VBG HCO3 VBG Total CO2 VBG O2 Saturation VBG Base Excess Hemoglobin Hematocrit Potassium Glucose Ionized Calcium FiO2 Sodium Chloride Carbon Dioxide Anion Gap BUN Creatinine GFR Calculation BUN/Creatinine Ratio POC Glucose 124 H Calculated Osmolality Calcium Venous Ioniz Calcium Magnesium Total Bilirubin Direct Bilirubin AST ALT Alkaline Phosphatase Total Creatine Kinase CK-MB (CK-2) CK and CKMB Interp Troponin I Total Protein Albumin Globulin Albumin/Globulin Ratio Urine Color Urine Appearance Urine pH Ur Specific [place] Urine Protein Urine Glucose (UA) Urine Ketones Urine Blood Urine Nitrate Urine Bilirubin Urine Urobilinogen Urine Leukocytes Urine RBC Urine WBC Ur Squamous Epith Cells Urine Bacteria Urine Mucus Ur Culture Indicated? Blood Type Antibody Screen Crossmatch Quality Measures - VTE Contraindication to Pharmacological VTE Prophylaxis: High Risk of Bleeding
[2016-12-10] MEDS ORDERED: CLORAZEPATE 3.75 MG TABLET PO PRN (07:42)
[2016-12-10] MEDS ORDERED: MECLIZINE 25 MG TABLET PO PRN (07:42)
[2016-12-10] MEDS ORDERED: MAGNESIUM SULF RIDER 2 GM in PREMIX 1 EACH IV PRN (07:51)
[2016-12-10] MEDS ORDERED: MAGNESIUM SULF RIDER 4 GM in PREMIX 1 EACH IV PRN (07:51)
[2016-12-10] MEDS ORDERED: DEXTROSE 50% 25 GM/50 ML VIAL IV PRN ×2 (07:51)
[2016-12-10] MEDS ORDERED: ZALEPLON 5 MG CAPSULE PO PRN (07:51)
[2016-12-10] MEDS ORDERED: ONDANSETRON 4 MG/2 ML VIAL IV PRN (07:51)
[2016-12-10] MEDS ORDERED: MAGNESIUM HYDROXIDE SUSP 30 ML UDCUP PO PRN (07:51)
[2016-12-10] MEDS ORDERED: MORPHINE 2 MG/1 ML SYRINGE IV PRN (07:51)
[2016-12-10] MEDS ORDERED: ALUMINUM/MAGNES/SIMETH MAX STR 30 ML UDCUP PO PRN (07:51)
[2016-12-10] MEDS ORDERED: ACETAMINOPHEN 325 MG TABLET PO PRN (07:51)
[2016-12-10] MEDS ORDERED: GLUCAGON 1 MG VIAL IM PRN ×2 (07:51)
[2016-12-10] MEDS ORDERED: SODIUM CHLOR 0.45% KCL 20 MEQ 20 MEQ/1,000 ML BAG IV SCH (08:00)
[2016-12-10] MEDS: CEFUROXIME INJ 1,500 MG in SODIUM CHLORIDE 0.9% 100 ML IV SCH ×2 (08:39→21:24)
[2016-12-10] MEDS: INSULIN LISPRO 100 UNIT/ML SUBCUT SCH (08:42)
--- NOTE | 2016-12-10 08:42 | Hospitalist Progress Note ---
Assessment and Plan (1) Diabetes Status: Acute Assessment and plan: The patient continues on Januvia but we are holding metformin. I am going to substitute Humulin and 10 units twice daily and follow glucometers. 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 She is being transferred out of [facility] ICU today. Blood glucose is well controlled on insulin infusion. She is ready to make transition to subcutaneous route. Januvia is restarted Exam - Constitutional Vitals: Period Temp Pulse Resp BP Sys/[place] Pulse Ox Last 24 Hr 97.1 F-98.6 F 79-108 6-21 92-167/50-87 96-100 General appearance: mild distress - Respiratory Respiratory exam: Present: clear to auscultation bilaterally - Cardiovascular Cardiovascular exam: Present: regular rate and rhythm Results - Labs CBC & BMP: 12/10/16 04:00 12/10/16 04:00 Lab Results: I have reviewed the past 24 hour labs Quality Measures - VTE Contraindication to Pharmacological VTE Prophylaxis: High Risk of Bleeding
[2016-12-10] MEDS: CILOSTAZOL 50 MG TABLET PO SCH ×3 (08:43→21:20)
[2016-12-10] MEDS: PRAVASTATIN 40 MG TABLET PO SCH ×2 (08:43→08:45)
[2016-12-10] MEDS: prednisoLONE ACETATE 1% OPH SUSP 5 ML BOTTLE BOTH EYES SCH ×5 (08:43→21:30)
[2016-12-10] MEDS: PANTOPRAZOLE 40 MG TABLET PO SCH ×2 (08:43→08:46)
[2016-12-10] MEDS: CHLORHEXIDINE 0.12% ORAL RINSE 60 ML BOTTLE SWISH/SPIT SCH ×4 (08:43→21:30)
[2016-12-10] MEDS: sitaGLIPtin 25 MG TABLET PO SCH ×2 (08:43→08:46)
[2016-12-10] MEDS: ASPIRIN EC 81 MG TABLET PO SCH (08:45)
[2016-12-10] MEDS: FERROUS SULFATE 325 MG TABLET PO SCH (08:45)
[2016-12-10] MEDS: PREGABALIN 100 MG CAPSULE PO SCH ×2 (08:45→21:20)
[2016-12-10] MEDS: DOCUSATE SODIUM 100 MG CAPSULE PO SCH (08:46)
--- NOTE | 2016-12-10 09:21 | XRay Report ---
XR chest 1V portable Indication: Chest tube removal. Chest one view: Comparison yesterday shows removal of the right basilar chest tube, endotracheal tube, NG tube and [place] catheter. Right IJ central line position is stable. No pneumothorax identified. Heart size is normal. Mildly coarsened interstitial markings of the lungs are stable. Impression: Removal of lines and tubes as described. No pneumothorax. PROCEDURE INTERPRETED AT [facility] DEPARTMENT OF RADIOLOGY Final Report Signed by: Gonzalo Mireles M.D.
[2016-12-10] MEDS ORDERED: PREGABALIN 100 MG CAPSULE PO SCH (13:11)
[2016-12-10] MEDS ORDERED: ASPIRIN EC 81 MG TABLET PO SCH (13:11)
[2016-12-10] MEDS: NICOTINE 21 MG/24 HR PATCH TRANSDERM SCH (14:46)
[2016-12-10] MEDS: metFORMIN 500 MG TABLET PO SCH ×2 (14:47→21:20)
[2016-12-10] MEDS: DULoxetine 30 MG CAPSULE PO SCH ×2 (14:47→21:30)
[2016-12-10] MEDS: INSULIN REGULAR 100 UNIT/ML SUBCUT SCH ×2 (17:23→22:23)
[2016-12-10] MEDS: INSULIN NPH 100 UNIT/ML SUBCUT SCH (17:23)
[2016-12-10] MEDS ORDERED: DULoxetine 30 MG CAPSULE PO SCH (21:00)
[2016-12-11] MEDS: INSULIN REGULAR 100 UNIT/ML SUBCUT SCH ×6 (03:01→21:25)
[2016-12-11 04:43] LABS: Basophils % 0.2 % (0.0-0.8); Eosinophils # 0.1 10*3/uL (0.0-0.87); Eosinophils % 1.1 % (0.00-10.9); Hematocrit 27.2 VOL% (35.7-47.0); Hemoglobin 8.4 GM/DL (12.0-16.0); Immature Granulocytes % 0.4 %; Immature Granulocytes Absolute 0.05 #; Lymphocytes # 2.5 10*3/uL (1.4-4.0); Lymphocytes % 20.6 % (21.3-54.2); Mean Corpuscular HGB Conc 30.9 GM/DL (32-36); Mean Corpuscular Hemoglobin 27 PG (27-34); Mean Corpuscular Volume 88.6 FL (87-102); Mean Platelet Volume 8.9 FL (9.6-12.0); Monocytes # 0.6 10*3/uL (0.11-0.8); Monocytes % 5.2 % (1.7-12.7); Neutrophils # 8.8 10*3/uL (1.4-7.4); Neutrophils % 72.5 % (38.7-73.9); Platelet Count 293 T/CUMM (130-400); Red Blood Count 3.07 MC/CUMM (3.8-5.5); Red Cell Distribution Width 15.1 % (9.3-17.3); White Blood Count 12.1 T/CUMM (4-12)
[2016-12-11 05:18] LABS: Alanine Aminotransferase 17 U/L (13-56); Albumin 2.7 G/DL (3.4-5.0); Alkaline Phosphatase 50 U/L (45-117); Aspartate Amino Transferase 15 U/L (0-37); Bilirubin,Indirect 0.5 MG/DL (0.0-1.0); Blood Urea Nitrogen 12 MG/DL (7-18); Calcium 8.5 MG/DL (8.5-10.1); Glucose 108 MG/DL (74-106); Magnesium 2.1 MG/DL (1.8-2.4); Osmolality,Calculated 279.4 MOS/KG (273-304); Sodium 140 MMOL/L (136-145); Total Protein 5.2 G/DL (6.4-8.3)
[2016-12-11 05:19] LABS: Potassium 3.9 MMOL/L (3.5-5.1)
[2016-12-11] MEDS ORDERED: FUROSEMIDE 40 MG/4 ML VIAL IV ONE (06:00)
--- NOTE | 2016-12-11 06:18 | Cardiothoracic Progress Note ---
Cardiothoracic Subjective Interval history: Patient is sore but otherwise okay. Vital signs are stable and she is breathing comfortably. Laboratory work is essentially within normal limits. We will try to increase her activity today according to routine postoperative protocol. Exam (Progress Note) - Constitutional Vitals: Period Temp Pulse Resp BP Sys/Villarreal Pulse Ox Last 24 Hr 97.1 F-98.6 F 100-114 8-20 111-161/47-80 90-97 Result/EKG - Labs CBC & BMP: 12/11/16 03:40 12/11/16 03:40 Labs: Laboratory Results - last 24 hr 12/08/16 12/10/16 12/10/16 13:22 14:02 16:07 WBC RBC Hgb Hct MCV MCH MCHC RDW Plt Count MPV Neut % (Auto) Lymph % (Auto) Colbert % (Auto) Eos % (Auto) Baso % (Auto) Neut # (Auto) Lymph # (Auto) Colbert # (Auto) Eos # (Auto) Baso # (Auto) Immature Gran % Nucleated RBC % Immature Gran # Nucleated RBCs # Sodium Potassium Chloride Carbon Dioxide Anion Gap BUN Creatinine GFR Calculation BUN/Creatinine Ratio Glucose POC Glucose 210 H 206 H Calculated Osmolality Calcium Magnesium Total Bilirubin Direct Bilirubin Indirect Bilirubin AST ALT Alkaline Phosphatase Total Creatine Kinase CK-MB (CK-2) Troponin I Total Protein Albumin Globulin Albumin/Globulin Ratio Blood Type A POSITIVE Antibody Screen Negative Crossmatch See Detail 12/10/16 12/11/16 12/11/16 20:19 03:00 03:40 WBC 12.1 H D RBC 3.07 L Hgb 8.4 L Hct 27.2 L MCV 88.6 MCH 27 MCHC 30.9 L RDW 15.1 Plt Count 293 MPV 8.9 L Neut % (Auto) 72.5 Lymph % (Auto) 20.6 L Colbert % (Auto) 5.2 Eos % (Auto) 1.1 Baso % (Auto) 0.2 Neut # (Auto) 8.8 H Lymph # (Auto) 2.5 Colbert # (Auto) 0.6 Eos # (Auto) 0.1 Baso # (Auto) 0.0 Immature Gran % 0.4 Nucleated RBC % 0.0 Immature Gran # 0.05 Nucleated RBCs # 0.00 Sodium Potassium Chloride Carbon Dioxide Anion Gap BUN Creatinine GFR Calculation BUN/Creatinine Ratio Glucose POC Glucose 142 H 141 H Calculated Osmolality Calcium Magnesium Total Bilirubin Direct Bilirubin Indirect Bilirubin AST ALT Alkaline Phosphatase Total Creatine Kinase CK-MB (CK-2) Troponin I Total Protein Albumin Globulin Albumin/Globulin Ratio Blood Type Antibody Screen Crossmatch 12/11/16 03:40 WBC RBC Hgb Hct MCV MCH MCHC RDW Plt Count MPV Neut % (Auto) Lymph % (Auto) Colbert % (Auto) Eos % (Auto) Baso % (Auto) Neut # (Auto) Lymph # (Auto) Colbert # (Auto) Eos # (Auto) Baso # (Auto) Immature Gran % Nucleated RBC % Immature Gran # Nucleated RBCs # Sodium 140 Potassium 3.9 Chloride 106 Carbon Dioxide 29 Anion Gap 8.9 BUN 12 Creatinine 0.60 GFR Calculation 101 BUN/Creatinine Ratio 20.00 Glucose 108 H POC Glucose Calculated Osmolality 279.4 Calcium 8.5 Magnesium 2.1 Total Bilirubin 0.60 Direct Bilirubin 0.10 Indirect Bilirubin 0.5 AST 15 ALT 17 Alkaline Phosphatase 50 Total Creatine Kinase 143 D CK-MB (CK-2) 2.7 Troponin I 0.590 H D Total Protein 5.2 L Albumin 2.7 L Globulin 2.5 Albumin/Globulin Ratio 1.0 L Blood Type Antibody Screen Crossmatch Quality Measures - VTE Contraindication to Pharmacological VTE Prophylaxis: High Risk of Bleeding Specialty Discharge - Follow Up or Referrals
[2016-12-11] MEDS: KETOROLAC 30 MG/1 ML VIAL IV SCH ×4 (06:40→21:25)
[2016-12-11] MEDS: SODIUM CHLORIDE 0.45% 1,000 ML IV SCH ×2 (08:29)
[2016-12-11] MEDS: INSULIN REGULAR DRIP 100 ML IV SCH (08:30)
[2016-12-11] MEDS: INSULIN NPH 100 UNIT/ML SUBCUT SCH (08:31)
--- NOTE | 2016-12-11 08:31 | XRay Report ---
Referring Physician: Benja Us Exam: XR chest 1V portable Date: December 11, 2016 at 6:15 AM Reason: Shortness of breath Comparison: Chest one view portable December 10, 2016 Findings: A right IJ catheter is again in place. There is borderline cardiomegaly, and the patient is status post sternotomy. There is minimal scattered atelectasis within both lungs, mainly at the left lung base. No pneumothorax is identified, but there is mild soft tissue air at the left axilla and left supraclavicular region. Minimal left pleural fluid is also present. The osseous structures appear stable. Impression: There is soft tissue air at the left axilla and left supraclavicular region. The study is otherwise similar to before. PROCEDURE INTERPRETED AT [facility] DEPARTMENT OF RADIOLOGY Final Report Signed by: Dr. Samina Caceres
[2016-12-11] MEDS: DULoxetine 30 MG CAPSULE PO SCH ×2 (08:59→21:24)
[2016-12-11] MEDS: ASPIRIN EC 81 MG TABLET PO SCH (08:59)
[2016-12-11] MEDS: PRAVASTATIN 40 MG TABLET PO SCH (08:59)
[2016-12-11] MEDS: POTASSIUM CHLORIDE 20 MEQ TABLET PO PRN ×2 (09:00→09:04)
[2016-12-11] MEDS: FERROUS SULFATE 325 MG TABLET PO SCH (09:00)
[2016-12-11] MEDS: METOPROLOL TARTRATE 25 MG TABLET PO SCH ×2 (09:00→21:23)
[2016-12-11] MEDS: DOCUSATE SODIUM 100 MG CAPSULE PO SCH (09:00)
[2016-12-11] MEDS: PREGABALIN 100 MG CAPSULE PO SCH ×2 (09:01→21:24)
[2016-12-11] MEDS: sitaGLIPtin 25 MG TABLET PO SCH (09:01)
[2016-12-11] MEDS: metFORMIN 500 MG TABLET PO SCH ×2 (09:01→21:24)
[2016-12-11] MEDS: NICOTINE 21 MG/24 HR PATCH TRANSDERM SCH (09:02)
[2016-12-11] MEDS: CILOSTAZOL 50 MG TABLET PO SCH ×2 (09:03→21:24)
[2016-12-11] MEDS: PANTOPRAZOLE 40 MG TABLET PO SCH (09:03)
[2016-12-11] MEDS: CHLORHEXIDINE 0.12% ORAL RINSE 60 ML BOTTLE SWISH/SPIT SCH ×2 (09:03→21:34)
[2016-12-11] MEDS: prednisoLONE ACETATE 1% OPH SUSP 5 ML BOTTLE BOTH EYES SCH ×4 (09:03→21:23)
--- NOTE | 2016-12-11 10:24 | Hospitalist Progress Note ---
Assessment and Plan (1) Diabetes Status: Acute Assessment and plan: The patient continues on Januvia and we have restarted metformin at 500 mg twice daily. I am going to discontinue intermediate acting insulin and continue with sliding scale. Current Visit: Yes Qualifiers: Diabetes mellitus type: type 2 Diabetes mellitus complication status: with hyperglycemia Diabetes mellitus termite treater helper insulin use: without termite treater helper use Qualified Code(s): E11.65 - Type 2 diabetes mellitus with hyperglycemia (2) CAD (coronary artery disease) Status: Acute Current Visit: Yes Hospitalist: Subjective Interval history: The patient is resting quietly in her room today. Blood glucose is well controlled. The patient has no complaint of palpitation or angina. She has chest soreness as expected. Exam - Constitutional Vitals: Period Temp Pulse Resp BP Sys/Villarreal Pulse Ox Last 24 Hr 97.1 F-98.6 F 100-114 8-20 111-149/47-68 90-95 General appearance: normal weight - Respiratory Respiratory exam: Present: clear to auscultation bilaterally - Cardiovascular Cardiovascular exam: Present: regular rate and rhythm Results - Labs CBC & BMP: 12/11/16 03:40 12/11/16 03:40 Lab Results: I have reviewed the past 24 hour labs Quality Measures - VTE Contraindication to Pharmacological VTE Prophylaxis: High Risk of Bleeding Specialty Discharge - Follow Up or Referrals
[2016-12-12] MEDS: KETOROLAC 30 MG/1 ML VIAL IV SCH ×2 (04:11→09:29)
[2016-12-12 04:53] LABS: Basophils % 0.3 % (0.0-0.8); Eosinophils # 0.3 10*3/uL (0.0-0.87); Hematocrit 28.7 VOL% (35.7-47.0); Hemoglobin 9.2 GM/DL (12.0-16.0); Immature Granulocytes % 0.4 %; Immature Granulocytes Absolute 0.05 #; Lymphocytes # 2.8 10*3/uL (1.4-4.0); Lymphocytes % 24.7 % (21.3-54.2); Mean Corpuscular HGB Conc 32.1 GM/DL (32-36); Mean Corpuscular Hemoglobin 28 PG (27-34); Mean Corpuscular Volume 86.4 FL (87-102); Mean Platelet Volume 9.2 FL (9.6-12.0); Monocytes # 0.7 10*3/uL (0.11-0.8); Monocytes % 5.8 % (1.7-12.7); Neutrophils # 7.4 10*3/uL (1.4-7.4); Neutrophils % 65.8 % (38.7-73.9); Platelet Count 349 T/CUMM (130-400); Red Blood Count 3.32 MC/CUMM (3.8-5.5); White Blood Count 11.2 T/CUMM (4-12)
[2016-12-12 05:41] LABS: Alanine Aminotransferase 16 U/L (13-56); Albumin 2.7 G/DL (3.4-5.0); Alkaline Phosphatase 63 U/L (45-117); Aspartate Amino Transferase 14 U/L (0-37); Bilirubin,Indirect 0.4 MG/DL (0.0-1.0); Blood Urea Nitrogen 13 MG/DL (7-18); Calcium 8.5 MG/DL (8.5-10.1); Glucose 113 MG/DL (74-106); Magnesium 2.1 MG/DL (1.8-2.4); Osmolality,Calculated 281.3 MOS/KG (273-304); Potassium 4.3 MMOL/L (3.5-5.1); Sodium 141 MMOL/L (136-145); Total Protein 5.6 G/DL (6.4-8.3)
[2016-12-12 05:45] LABS: Troponin I Only 0.235 NG/ML (0.00-0.045)
[2016-12-12] MEDS: INSULIN REGULAR 100 UNIT/ML SUBCUT SCH ×2 (07:46→12:27)
--- NOTE | 2016-12-12 08:13 | XRay Report ---
Portable chest. Indication: Shortness of breath. Comparison: December 11, 2016. The heart is normal in size. Post median sternotomy. There is worsening platelike atelectasis at the left lung base. There are small bilateral pleural effusions. Post median sternotomy. Distal tip of a right IJ line is in the right atrium. Subcutaneous emphysema is again noted over the left shoulder. Degenerative changes of both shoulders. Impression: Worsening left basilar atelectasis. Stable subcutaneous emphysema of the left upper thorax soft tissues. PROCEDURE INTERPRETED AT [facility] DEPARTMENT OF RADIOLOGY Final Report Signed by: Dr. Nely Snyder
[2016-12-12] MEDS: CILOSTAZOL 50 MG TABLET PO SCH (08:45)
[2016-12-12] MEDS: PREGABALIN 100 MG CAPSULE PO SCH (08:46)
[2016-12-12] MEDS: FERROUS SULFATE 325 MG TABLET PO SCH (08:46)
[2016-12-12] MEDS: DOCUSATE SODIUM 100 MG CAPSULE PO SCH (08:46)
[2016-12-12] MEDS: sitaGLIPtin 25 MG TABLET PO SCH (08:47)
[2016-12-12] MEDS: PRAVASTATIN 40 MG TABLET PO SCH (08:47)
[2016-12-12] MEDS: metFORMIN 500 MG TABLET PO SCH (08:47)
[2016-12-12] MEDS: DULoxetine 30 MG CAPSULE PO SCH (08:48)
[2016-12-12] MEDS: CHLORHEXIDINE 0.12% ORAL RINSE 60 ML BOTTLE SWISH/SPIT SCH (08:49)
[2016-12-12] MEDS: ASPIRIN EC 81 MG TABLET PO SCH (08:56)
[2016-12-12] MEDS: METOPROLOL TARTRATE 25 MG TABLET PO SCH (08:56)
[2016-12-12] MEDS: NICOTINE 21 MG/24 HR PATCH TRANSDERM SCH (08:57)
[2016-12-12] MEDS: PANTOPRAZOLE 40 MG TABLET PO SCH (08:58)
[2016-12-12] MEDS: prednisoLONE ACETATE 1% OPH SUSP 5 ML BOTTLE BOTH EYES SCH (08:59)
--- NOTE | 2016-12-12 09:22 | Discharge Summary ---
Hospital Course - Hospital Course Hospital Course: History of present illness: Patient is a 56-year-old lady who is a patient of Dr.Ben De La Torre and was being evaluated because of peripheral vascular disease. She was noted to have chest pain associated with exertion and was referred to cardiology for further evaluation. Cardiac catheterization demonstrating critical disease of both the anterior descending and right coronary arteries and the patient was referred for bypass surgery prior to any peripheral vascular surgery. She is admitted for that purpose. Past medical history review of systems social history and family history are documented in her admission note but are largely pertinent because of heavy cigarette smoking and history of peripheral vascular disease. Hospital course: Patient was taken to surgery and bilateral internal mammary grafting was carried out with a graft to the right and a graft to the anterior descending coronary artery. Patient's postoperative course was uncomplicated and she was discharged home on the third postoperative day with instructions to return for follow-up in 1 month. Discharge medications are listed below. Specialty Discharge - Follow Up or Referrals Follow up with: Benja Us MD [Physician] - 1 Month Discharge Plan - Discharge Data Condition at Discharge: Stable Discharge Diet: advance to your usual diet Activity: resume usual activities as tolerated Hygiene: no restrictions Weight Bearing at Discharge: full weight bearing Driving: not for (10 days) - Discharge Medications New Metoprolol Tartrate Tab [Lopressor Tab] 25 mg PO BID #60 tablet Nicotine 21 mg/24 Hr Patch [Nicoderm CQ 21 mg/24 hr Patch] 1 patch TRANSDERM DAILY #30 patch Continue prednisoLONE AC 1% OPH SUSP [Pred Forte] 1 drop BOTH EYES QID Omeprazole 40 mg PO DAILY Metformin HCl 500 mg PO BID Pregabalin [Lyrica] 100 mg PO BID Cilostazol [Pletal] 50 mg PO BID Aspirin [Aspirin EC] 81 mg PO DAILY diazePAM [Diazepam] 10 mg PO BEDTIME PRN PRN Reason: Sleep Meclizine [Antivert] 25 mg PO TID PRN PRN Reason: Dizziness Pravastatin Sodium 40 mg PO DAILY Sitagliptin Phosphate [Januvia] 50 mg PO DAILY Discontinued Hydrocodone/Acetaminophen [Hydrocodon-Acetaminoph 7.5-325] 1 tablet PO QID PRN PRN Reason: Pain DULoxetine [Cymbalta] 60 mg PO BID - Follow Up or Referral - Forms/Instructions Instructions: How to Stop Smoking (GEN), Heart Healthy Diet (GEN), Cigarette Smoking and Your Health (GEN), Coronary Artery Bypass Graft, Food Order Delivery Runner ( GEN), Sternal Precautions (GEN) Exam - Constitutional Vitals: Period Temp Pulse Resp BP Sys/Villarreal Pulse Ox Last 24 Hr 96.6 F-99.4 F 86-96 16-20 95-120/50-89 92-94 Discharge Results Procedures and tests throughout hospitalization: Pending Orders 12/08/16 13:22 Fresh Frozen Plasma Routine Red Blood Cells Leuko Red Routine Single Donor Platelets Routine Type and Screen Routine 12/14/16 04:00 XR chest 2V IN AM Bilirubin Profile Adult IN AM Comp Blood Count Auto Diff IN AM Comprehensive Metabolic Panel IN AM Hepatic (Liver) Panel IN AM Magnesium IN AM Troponin,CKMB & Ck Total IN AM 12/15/16 04:00 XR chest 2V IN AM Bilirubin Profile Adult IN AM Comp Blood Count Auto Diff IN AM Comprehensive Metabolic Panel IN AM Hepatic (Liver) Panel IN AM Magnesium IN AM Troponin,CKMB & Ck Total IN AM Labs on day of discharge: Labs from last 24 hours 12/12/16 12/12/16 12/12/16 07:33 04:36 04:36 WBC 11.2 RBC 3.32 L Hgb 9.2 L Hct 28.7 L MCV 86.4 L MCH 28 MCHC 32.1 RDW 15.0 Plt Count 349 MPV 9.2 L Neut % (Auto) 65.8 Lymph % (Auto) 24.7 Bond % (Auto) 5.8 Eos % (Auto) 3.0 Baso % (Auto) 0.3 Neut # (Auto) 7.4 Lymph # (Auto) 2.8 Bond # (Auto) 0.7 Eos # (Auto) 0.3 Baso # (Auto) 0.0 Immature Gran % 0.4 Nucleated RBC % 0.0 Immature Gran # 0.05 Nucleated RBCs # 0.00 Sodium 141 Potassium 4.3 Chloride 104 Carbon Dioxide 30 Anion Gap 11.3 BUN 13 Creatinine 0.70 GFR Calculation 93 BUN/Creatinine Ratio 18.00 Glucose 113 H POC Glucose 104 Calculated Osmolality 281.3 Calcium 8.5 Magnesium 2.1 Total Bilirubin 0.50 Direct Bilirubin 0.10 Indirect Bilirubin 0.4 AST 14 ALT 16 Alkaline Phosphatase 63 Total Creatine Kinase 91 D CK-MB (CK-2) < 1.0 Troponin I 0.235 H D Total Protein 5.6 L Albumin 2.7 L Globulin 2.9 Albumin/Globulin Ratio 0.9 L Blood Type Antibody Screen Crossmatch 12/11/16 12/11/16 12/11/16 20:24 16:32 11:52 WBC RBC Hgb Hct MCV MCH MCHC RDW Plt Count MPV Neut % (Auto) Lymph % (Auto) Bond % (Auto) Eos % (Auto) Baso % (Auto) Neut # (Auto) Lymph # (Auto) Bond # (Auto) Eos # (Auto) Baso # (Auto) Immature Gran % Nucleated RBC % Immature Gran # Nucleated RBCs # Sodium Potassium Chloride Carbon Dioxide Anion Gap BUN Creatinine GFR Calculation BUN/Creatinine Ratio Glucose POC Glucose 160 H 146 H 118 H Calculated Osmolality Calcium Magnesium Total Bilirubin Direct Bilirubin Indirect Bilirubin AST ALT Alkaline Phosphatase Total Creatine Kinase CK-MB (CK-2) Troponin I Total Protein Albumin Globulin Albumin/Globulin Ratio Blood Type Antibody Screen Crossmatch 12/08/16 13:22 WBC RBC Hgb Hct MCV MCH MCHC RDW Plt Count MPV Neut % (Auto) Lymph % (Auto) Bond % (Auto) Eos % (Auto) Baso % (Auto) Neut # (Auto) Lymph # (Auto) Bond # (Auto) Eos # (Auto) Baso # (Auto) Immature Gran % Nucleated RBC % Immature Gran # Nucleated RBCs # Sodium Potassium Chloride Carbon Dioxide Anion Gap BUN Creatinine GFR Calculation BUN/Creatinine Ratio Glucose POC Glucose Calculated Osmolality Calcium Magnesium Total Bilirubin Direct Bilirubin Indirect Bilirubin AST ALT Alkaline Phosphatase Total Creatine Kinase CK-MB (CK-2) Troponin I Total Protein Albumin Globulin Albumin/Globulin Ratio Blood Type A POSITIVE Antibody Screen Negative Crossmatch See Detail DS: Provider Date of admission: 12/05/16 16:13 Primary care physician: . No PCP Attending physician on admission: Benja Us MD Consults: 12/05/16 13:15 Consult to Dietitian [CONS] Routine Reason for Dietitian: Other Consult Comment: low salt, low cholesterol, diet 12/10/16 07:51 Consult to Cardiac Rehabilitation [CONS] Routine Reason for Cardiac Rehabilitation: Other Consult Comment: Post CABG/heart surgery Consult to Diabetes Center, Educator [CONS] Routine Reason for Math And Sciences Department Chair: Diabetes Education Initial Insulin Education Consult Comment: insulin education Consult to Dietitian [CONS] Routine Reason for Dietitian: Dietary Consult Consult Comment: Cardiac, low salt, low cholesterol diet Consult to Physical Therapy [CONS] Routine Reason for Physical Therapy: Other Consult Comment: CV Rehab Consult to Physician [CONS] Routine Comment: Management of diabetes Consulting Provider: Consult to Specialist Group: Hospitalist Discharging clinician: Benja Us MD Expected date of discharge: 12/12/16
[2016-12-12 12:05] VITALS: BP 114/64
== END 2016-12-12 12:33 | disposition home health service (06) | DRG 236 ==
LOC: N.TELES 16:13 → N.CVR 12-09 08:52 → N.TELES 12-10 12:35